=== PATIENT | female | born 1940 | race Caucasian/White ===

== ENCOUNTER 2022-10-22 14:21 | Inpatient (IN) | payer BC ==
[~2022-10-22] VITALS: Ht 157.5 cm; Wt 58.8 kg
[~2022-10-22 14:21] MED LIST: IBAN1TAB3 PO; LISI40TA11 PO; NOR10T PO
[2022-10-22 15:23] LABS: Basophils # (auto) 0.1 10 ^3/uL (0-0.2); Basophils % (auto) 1.2 % (0.0-2.0); Eosinophils # (auto) 0.1 10 ^3/uL (0-0.8); Hematocrit 36.1 % (36.0-46.0); Hemoglobin 11.7 g/dL (12.2-16.2); Lymphocytes % (auto) 14.7 % (10.0-50.0); Mean Corpuscular Hemoglobin 30.1 pg (28.0-32.0); Mean Corpuscular Hgb Conc. 32.5 g/dL (32.0-36.0); Mean Corpuscular Volume 92.6 fL (80.0-100.0); Monocytes # (auto) 0.7 10 ^3/uL (0-1.3); Monocytes % (auto) 10.3 % (0.0-12.0); Neutrophils # (auto) 5.1 10 ^3/uL (1.6-8.6); Neutrophils % (auto) 72.8 % (37.0-80.0); Nucleated Red Blood Cells % 0.1 %; Red Cell Distribution Width 13.4 % (11.8-14.3)
[2022-10-22 15:34] LABS: BUN/Creatinine Ratio 27.7; Calcium 9.2 mg/dL (8.5-10.1); Magnesium 2.1 mg/dL (1.6-2.6)
[2022-10-22 15:37] LABS: Bilirubin, Total 0.4 mg/dL (0.2-1.0); Total Protein 5.9 g/dL (6.4-8.2)
[2022-10-22 15:47] LABS: Potassium 4.8 mmol/L (3.5-5.1)
[2022-10-22] MEDS ORDERED: ACETAMINOPHEN 325 MG TAB PO PRN (18:30)
[2022-10-22] MEDS ORDERED: MORPHINE SULFATE INJ 2 MG/ml SYRG IV PRN (18:30)
[2022-10-22] MEDS ORDERED: NITROGLYCERIN 0.4 MG SL TAB SL PRN (18:30)
[2022-10-22] MEDS ORDERED: DOCUSATE SOD 100 MG CAP PO PRN (18:30)
[2022-10-22] MEDS ORDERED: ONDANSETRON HCL 4 MG/2 ML VIAL IV PRN (18:30)
[2022-10-22] MEDS: HYDROcodone-ACET 5/325MG TAB PO PRN (21:17)
[2022-10-22 22:00] VITALS: BP 116/54
[2022-10-22] MEDS ORDERED: PATIENTS OWN MEDICATION (Lisinopril 1 TAB) PO SCH (22:00)
[2022-10-22 22:42] VITALS: BP 140/70
[2022-10-22] MEDS ORDERED: cefTRIAXone 1GM/50ML D5W 50 ML IV SCH (23:00)
[2022-10-23] MEDS: CLINDAMYCIN 600MG IV 50 ML IV SCH ×4 (00:39→21:41)
[2022-10-23] MEDS: HYDROcodone-ACET 5/325MG TAB PO PRN ×2 (01:47→18:15)
[2022-10-23] MEDS ORDERED: cefTRIAXone 1GM/50ML D5W 50 ML IV SCH (04:45)
[2022-10-23 05:00] VITALS: BP 121/50
[2022-10-23 05:37] LABS: Basophils # (auto) 0.1 10 ^3/uL (0-0.2); Eosinophils # (auto) 0.1 10 ^3/uL (0-0.8); Eosinophils % (auto) 1.7 % (0.0-7.0); Lymphocytes # (auto) 1.2 10 ^3/uL (0.4-5.4); Lymphocytes % (auto) 18.7 % (10.0-50.0); Mean Corpuscular Hemoglobin 30.6 pg (28.0-32.0); Mean Corpuscular Hgb Conc. 33.4 g/dL (32.0-36.0); Mean Corpuscular Volume 91.6 fL (80.0-100.0); Monocytes # (auto) 0.6 10 ^3/uL (0-1.3); Monocytes % (auto) 10.1 % (0.0-12.0); Neutrophils # (auto) 4.3 10 ^3/uL (1.6-8.6); Neutrophils % (auto) 68.5 % (37.0-80.0); Nucleated Red Blood Cells % 0.1 %; Red Blood Cells 3.27 10^6/uL (4.0-5.20); White Blood Cell 6.3 10^3/uL (4.4-10.8)
[2022-10-23 05:49] LABS: Potassium 4.7 mmol/L (3.5-5.1)
[2022-10-23 05:56] LABS: Albumin 2.4 g/dL (3.4-5.0); BUN/Creatinine Ratio 30.5; Bilirubin, Total 0.6 mg/dL (0.2-1.0); Calcium 8.4 mg/dL (8.5-10.1); Total Protein 4.9 g/dL (6.4-8.2)
[2022-10-23] MEDS: ALBUTEROL SULF 2.5 MG/0.5ML(0.5%) NEB SOLN NEB SCH ×3 (07:43→18:40)
[2022-10-23] MEDS: IPRATROPIUM BROM 0.5 MG/2.5ML INH SOL NEB SCH ×3 (07:43→18:40)
[2022-10-23] MEDS: PANTOPRAZOLE 40 MG/10 ML VIAL INJ IV SCH (08:29)
[2022-10-23] MEDS: ENOXAPARIN SOD 40 MG/0.4 ML SYRINGE SC SCH (08:29)
[2022-10-23 08:39] VITALS: BP 112/57
[2022-10-23 13:00] VITALS: BP 125/63
[2022-10-23 17:00] VITALS: BP 118/64
[2022-10-23] MEDS ORDERED: SODIUM CHLORIDE 0.9% 1,000 ML IV SCH (18:00)
[2022-10-23] MEDS: SODIUM CHLORIDE 0.9% 1,000 ML IV SCH (18:14)
[2022-10-23] MEDS: DOXYCYCLINE 100MG/250ML 250 ML IV SCH (18:14)
[2022-10-23 22:00] VITALS: BP 110/47
[2022-10-24] MEDS: HYDROcodone-ACET 5/325MG TAB PO PRN ×4 (00:15→21:54)
[2022-10-24 05:00] VITALS: BP 126/64
[2022-10-24] MEDS: CLINDAMYCIN 600MG IV 50 ML IV SCH ×2 (05:30→12:17)
[2022-10-24] MEDS: DOXYCYCLINE 100MG/250ML 250 ML IV SCH (06:30)
[2022-10-24] MEDS: SODIUM CHLORIDE 0.9% 1,000 ML IV SCH (06:38)
[2022-10-24] MEDS: IPRATROPIUM BROM 0.5 MG/2.5ML INH SOL NEB SCH ×3 (06:46→18:00)
[2022-10-24] MEDS: ALBUTEROL SULF 2.5 MG/0.5ML(0.5%) NEB SOLN NEB SCH ×3 (06:46→18:00)
[2022-10-24 08:00] VITALS: BP 113/53
[2022-10-24] MEDS: ENOXAPARIN SOD 40 MG/0.4 ML SYRINGE SC SCH (08:32)
[2022-10-24] MEDS: PANTOPRAZOLE 40 MG/10 ML VIAL INJ IV SCH (08:32)
[2022-10-24] MEDS ORDERED: amLODIPine BESYLATE 5 MG TAB PO SCH (10:00)
[2022-10-24 11:01] LABS: Urine Blood 1+ /uL (Negative); Urine Specific Gravity 1.018 (1.001-1.035)
[2022-10-24 11:17] LABS: Urine Bacteria MANY /hpf (None Seen); Urine WBC >100 /hpf (0 - 5)
[2022-10-24 12:00] VITALS: BP 103/54
[2022-10-24] MEDS: AMOXICILLIN/CLAVUL 875 MG TAB PO SCH ×2 (15:15→21:53)
[2022-10-24 15:48] LABS: Basophils # (auto) 0 10 ^3/uL (0-0.2); Basophils % (auto) 0.4 % (0.0-2.0); Eosinophils # (auto) 0.1 10 ^3/uL (0-0.8); Eosinophils % (auto) 1.6 % (0.0-7.0); Hematocrit 33.2 % (36.0-46.0); Hemoglobin 10.8 g/dL (12.2-16.2); Lymphocytes # (auto) 0.8 10 ^3/uL (0.4-5.4); Lymphocytes % (auto) 12.9 % (10.0-50.0); Mean Corpuscular Hemoglobin 29.9 pg (28.0-32.0); Mean Corpuscular Hgb Conc. 32.6 g/dL (32.0-36.0); Mean Corpuscular Volume 91.6 fL (80.0-100.0); Monocytes # (auto) 0.5 10 ^3/uL (0-1.3); Monocytes % (auto) 8.4 % (0.0-12.0); Neutrophils % (auto) 76.7 % (37.0-80.0); Nucleated Red Blood Cells % 0.2 %; Red Blood Cells 3.62 10^6/uL (4.0-5.20); Red Cell Distribution Width 13.2 % (11.8-14.3); White Blood Cell 6.5 10^3/uL (4.4-10.8)
[2022-10-24 16:00] VITALS: BP 112/59
[2022-10-24 16:08] LABS: BUN/Creatinine Ratio 27.6; Calcium 8.3 mg/dL (8.5-10.1); Potassium 4.6 mmol/L (3.5-5.1)
[2022-10-24 22:00] VITALS: BP 132/65
[2022-10-24 23:08] VITALS: BP 132/65
[2022-10-25] MEDS ORDERED: PANTOPRAZOLE 40 MG TAB PO SCH (10:00)
== END 2022-10-25 02:08 | DRG 602 ==
LOC: ER 14:21 → EDBD 14:21 → OVERFLOW 18:30 → EAST 21:35
PROVIDERS: ADMIT Nurse Practitioner Family; ATTEND Nurse Practitioner Family
DX: L03.115 Cellulitis of right lower limb (principal); J18.9 Pneumonia, unspecified organism; E46 Unspecified protein-calorie malnutrition; E87.0 Hyperosmolality and hypernatremia; L97.919 Non-pressure chronic ulcer of unspecified part of right lower leg with unspecified severity; N17.9 Acute kidney failure, unspecified; N39.0 Urinary tract infection, site not specified; L03.116 Cellulitis of left lower limb; Z68.23 Body mass index [BMI] 23.0-23.9, adult; E86.0 Dehydration; H91.90 Unspecified hearing loss, unspecified ear; I10 Essential (primary) hypertension; I87.2 Venous insufficiency (chronic) (peripheral); Z96.642 Presence of left artificial hip joint; Z20.822 Contact with and (suspected) exposure to COVID-19; Z74.01 Bed confinement status
CPT/HCPCS: 36415; 71045; 80048; 80053; 81001; 83735; 83880; 84484; 85025; 87426; 93005; 93970; 94640; 96365; 96368; 96372; 96375; C9113; G0378; J0696; J3490

== ENCOUNTER 2023-08-30 17:23 | Inpatient (IN) | payer BC ==
[~2023-08-30] VITALS: Ht 154.9 cm; Wt 68.0 kg
[~2023-08-30 17:23] MED LIST changes: -LISI40TA11 PO; +LISI40TA16 PO
[2023-08-30 18:39] LABS: Basophils # (auto) 0 10 ^3/uL (0-0.2); Basophils % (auto) 0.5 % (0.0-2.0); Eosinophils # (auto) 0 10 ^3/uL (0-0.8); Eosinophils % (auto) 0.3 % (0.0-7.0); Hematocrit 32.5 % (36.0-46.0); Hemoglobin 10.7 g/dL (12.2-16.2); Lymphocytes # (auto) 0.9 10 ^3/uL (0.4-5.4); Lymphocytes % (auto) 12.7 % (10.0-50.0); Mean Corpuscular Hemoglobin 30.2 pg (28.0-32.0); Mean Corpuscular Volume 91.6 fL (80.0-100.0); Monocytes # (auto) 0.8 10 ^3/uL (0-1.3); Monocytes % (auto) 10.8 % (0.0-12.0); Neutrophils # (auto) 5.6 10 ^3/uL (1.6-8.6); Neutrophils % (auto) 75.7 % (37.0-80.0); Red Blood Cells 3.55 10^6/uL (4.0-5.20); Red Cell Distribution Width 14.4 % (11.8-14.3); White Blood Cell 7.4 10^3/uL (4.4-10.8)
[2023-08-30 18:58] LABS: Alanine Aminotransferase 19 U/L (7-40); Alkaline Phosphatase 87 U/L (46-116); Anion Gap 6 (5-15); Aspartate Aminotransferase 20 U/L (13-40); BUN/Creatinine Ratio 17.8 (10.0-20.0); Blood Urea Nitrogen 18 mg/dL (9-23); Calcium 9.3 mg/dL (8.5-10.1); Carbon Dioxide 28 mmol/L (20-30); Chloride 107 mmol/L (98-107); Glucose 136 mg/dL (74-106); Potassium 3.5 mmol/L (3.5-5.1); Sodium 141 mmol/L (136-145)
[2023-08-30 18:59] LABS: Albumin 3.7 g/dL (3.2-4.8); Bilirubin, Total 0.4 mg/dL (0.2-1.0); Total Protein 5.9 g/dL (5.7-8.2)
[2023-08-30 19:35] VITALS: PULSE 73; RESP 20; O2SAT 97
[2023-08-30 19:47] LABS: Erythrocyte Sedimentation Rate 15 mm/hr (0-20)
[2023-08-30] MEDS ORDERED: CEPH250C PO ×2 (21:32)
[2023-08-30 22:15] LABS: Basophils # (auto) 0.1 10 ^3/uL (0-0.2); Eosinophils # (auto) 0 10 ^3/uL (0-0.8); Eosinophils % (auto) 0.7 % (0.0-7.0); Hematocrit 31.2 % (36.0-46.0); Hemoglobin 10.4 g/dL (12.2-16.2); Lymphocytes # (auto) 1.2 10 ^3/uL (0.4-5.4); Lymphocytes % (auto) 17.9 % (10.0-50.0); Mean Corpuscular Hemoglobin 30.4 pg (28.0-32.0); Mean Corpuscular Hgb Conc. 33.3 g/dL (32.0-36.0); Mean Corpuscular Volume 91.3 fL (80.0-100.0); Monocytes # (auto) 0.7 10 ^3/uL (0-1.3); Monocytes % (auto) 10.1 % (0.0-12.0); Neutrophils # (auto) 4.8 10 ^3/uL (1.6-8.6); Neutrophils % (auto) 70.3 % (37.0-80.0); Red Blood Cells 3.42 10^6/uL (4.0-5.20); Red Cell Distribution Width 14.4 % (11.8-14.3); White Blood Cell 6.9 10^3/uL (4.4-10.8)
[2023-08-30] MEDS ORDERED: ACETAMINOPHEN 500 MG TAB PO ONE (22:15)
[2023-08-30] MEDS ORDERED: ACETAMINOPHEN 325 MG TAB PO PRN (22:30)
[2023-08-30] MEDS ORDERED: ONDANSETRON HCL 4 MG/2 ML VIAL IV PRN (22:30)
[2023-08-30] MEDS ORDERED: hydrALAZINE HCL 10 MG TAB PO PRN (22:30)
[2023-08-30 22:33] LABS: Alanine Aminotransferase 20 U/L (7-40); Albumin 3.4 g/dL (3.2-4.8); Alkaline Phosphatase 81 U/L (46-116); Anion Gap 6 (5-15); Aspartate Aminotransferase 17 U/L (13-40); BUN/Creatinine Ratio 18.4 (10.0-20.0); Bilirubin, Total 0.5 mg/dL (0.2-1.0); Blood Urea Nitrogen 16 mg/dL (9-23); Calcium 8.9 mg/dL (8.5-10.1); Carbon Dioxide 27 mmol/L (20-30); Chloride 108 mmol/L (98-107); Glucose 81 mg/dL (74-106); INR 1.04 (0.9-1.15); Potassium 3.6 mmol/L (3.5-5.1); Prothrombin Time 10.9 sec (9.3-11.8); Sodium 141 mmol/L (136-145); Total Protein 5.6 g/dL (5.7-8.2)
[2023-08-30 22:44] LABS: Lipase 56 U/L (12-53); Magnesium 1.9 mg/dL (1.6-2.6)
[2023-08-30] MEDS: ENOXAPARIN SOD 40 MG/0.4 ML SYRINGE SC SCH (22:44)
[2023-08-30] MEDS: CLINDAMYCIN 600MG IV 50 ML IV SCH (22:44)
[2023-08-30] MEDS ORDERED: cefTRIAXone 1GM/50ML D5W 50 ML IV SCH (23:00)
[2023-08-31 00:05] LABS: Urine Bacteria NONE SEEN /hpf (None Seen); Urine Blood Negative /uL (Negative); Urine Clarity Clear (Clear); Urine Color Colorless (Yellow); Urine Hyaline Cast FEW /lpf (0 - 2); Urine Protein, UAD Negative (Negative); Urine Specific Gravity 1.009 (1.001-1.035); Urine Urobilinogen Normal (Negative); Urine WBC <1 /hpf (0 - 5)
[2023-08-31] MEDS: CLINDAMYCIN 600MG IV 50 ML IV SCH (06:38)
[2023-08-31] MEDS: HYDROcodone-ACET 5/325MG TAB PO PRN ×2 (06:42→20:03)
[2023-08-31 08:00] VITALS: PULSE 65; RESP 16; O2SAT 96
[2023-08-31] MEDS: FOLIC ACID 1 MG, MULTIPLE VITAMIN 10 ML, MAGNESIUM SULF SDV 50% 8 MEQ, THIAMINE INJ 100... INJ SCH ×5 (11:35)
[2023-08-31] MEDS: ceFAZolin 2 GM/D5W100ml 100 ML IV SCH ×3 (15:05→21:47)
[2023-08-31 17:12] VITALS: BP 116/61; PULSE 63; RESP 19; TEMP 98.4; O2SAT 98
[2023-08-31 17:18] VITALS: PULSE 63; RESP 19; O2SAT 96
[2023-08-31] MEDS: ENOXAPARIN SOD 40 MG/0.4 ML SYRINGE SC SCH (21:25)
[2023-08-31 22:00] VITALS: BP 129/74; PULSE 74; RESP 18; TEMP 97.4; O2SAT 93
[2023-09-01 05:00] VITALS: BP 136/61; PULSE 70; RESP 18; TEMP 97.5; O2SAT 91
[2023-09-01] MEDS: ceFAZolin 2 GM/D5W100ml 100 ML IV SCH ×3 (05:36→21:30)
[2023-09-01 08:30] VITALS: BP 142/79; PULSE 78; RESP 17; TEMP 97.8; O2SAT 96
[2023-09-01] MEDS ORDERED: FUROSEMIDE 20 MG/2 ML VIAL IV ONE (10:30)
[2023-09-01 13:00] VITALS: BP 137/77; PULSE 70; RESP 17; TEMP 97.9; O2SAT 95
[2023-09-01] MEDS: FOLIC ACID 1 MG, MULTIPLE VITAMIN 10 ML, MAGNESIUM SULF SDV 50% 8 MEQ, THIAMINE INJ 100... INJ SCH ×5 (13:00)
[2023-09-01] MEDS: HYDROcodone-ACET 5/325MG TAB PO PRN (16:38)
[2023-09-01 16:59] VITALS: BP 127/67; PULSE 65; RESP 20; TEMP 99; O2SAT 97
[2023-09-01] MEDS ORDERED: AMLO1TAB22 PO (17:09)
[2023-09-01] MEDS ORDERED: LISI40TA16 PO (17:09)
[2023-09-01] MEDS ORDERED: GABA-339 PO (17:09)
[2023-09-01] MEDS ORDERED: HYDR-4798 PO (17:09)
[2023-09-01] MEDS ORDERED: IBAN1TAB2 PO (17:09)
[2023-09-01] MEDS: SPIRONOLACTONE 25 MG TAB PO SCH (18:00)
[2023-09-01] MEDS: ENOXAPARIN SOD 40 MG/0.4 ML SYRINGE SC SCH (21:30)
[2023-09-01 22:00] VITALS: BP 133/76; PULSE 66; RESP 16; TEMP 98.7; O2SAT 94
[2023-09-01 22:01] LABS: COVID19 ANTIGEN SOFIA FIA NEGATIVE (NEGATIVE)
[2023-09-02 05:00] VITALS: BP 128/77; PULSE 128; RESP 77; TEMP 98.1; O2SAT 98
[2023-09-02] MEDS: ceFAZolin 2 GM/D5W100ml 100 ML IV SCH (05:44)
[2023-09-02] MEDS: SPIRONOLACTONE 25 MG TAB PO SCH (05:45)
[2023-09-02 06:03] LABS: Calcium 8.3 mg/dL (8.5-10.1); Chloride 106 mmol/L (98-107); Potassium 3.8 mmol/L (3.5-5.1); Sodium 142 mmol/L (136-145)
[2023-09-02 06:04] LABS: Anion Gap 7 (5-15); Carbon Dioxide 29 mmol/L (20-30)
[2023-09-02 06:09] LABS: BUN/Creatinine Ratio 12.8 (10.0-20.0); Blood Urea Nitrogen 11 mg/dL (9-23); Glucose 86 mg/dL (74-106)
[2023-09-02 08:36] VITALS: BP 139/76; PULSE 78; RESP 17; TEMP 97.7; O2SAT 97
[2023-09-02] MEDS: FOLIC ACID 1 MG, MULTIPLE VITAMIN 10 ML, MAGNESIUM SULF SDV 50% 8 MEQ, THIAMINE INJ 100... INJ SCH ×5 (12:00)
[2023-09-02 13:00] VITALS: BP 143/76; PULSE 73; RESP 16; TEMP 98.4; O2SAT 99
[2023-09-02 15:11] VITALS: BP 142/79; RESP 16; TEMP 36.9
== END 2023-09-02 15:50 | DRG 603 ==
LOC: EDBD 17:23 → EDUNIT# 17:23 → ER 17:23 → OVERFLOW 22:28 → OBSVTOIN 08-31 10:08 → EAST 08-31 15:59
PROVIDERS: ADMIT Nurse Practitioner Family; ATTEND Nurse Practitioner Family
DX: L03.115 Cellulitis of right lower limb (principal); I50.22 Chronic systolic (congestive) heart failure; J96.10 Chronic respiratory failure, unspecified whether with hypoxia or hypercapnia; L97.919 Non-pressure chronic ulcer of unspecified part of right lower leg with unspecified severity; L03.116 Cellulitis of left lower limb; I10 Essential (primary) hypertension; I87.2 Venous insufficiency (chronic) (peripheral); I11.0 Hypertensive heart disease with heart failure; I48.0 Paroxysmal atrial fibrillation; Z96.642 Presence of left artificial hip joint; Z20.822 Contact with and (suspected) exposure to COVID-19
CPT/HCPCS: 36415; 71045; 73590; 73630; 80048; 80053; 80320; 81001; 83605; 83690; 83735; 83880; 85025; 85610; 85652; 86141; 87040; 87426; 93306; 93970; 96372; 97110; 97163; G0378; J0696; J3490

== ENCOUNTER 2023-11-25 21:35 | Inpatient (IN) | payer BC ==
[~2023-11-25] VITALS: Ht 152.4 cm; Wt 98.8 kg
[~2023-11-25 21:35] MED LIST changes: +AMLO1TAB22 PO; +GABA-339 PO; +HYDR-4798 PO; +IBAN1TAB2 PO; -IBAN1TAB3 PO; -NOR10T PO
[2023-11-26] VITALS (8 sets, daily range): BP systolic 89–140; BP diastolic 48–68; PULSE 62–97; RESP 16–22; TEMP 97.9–100; O2SAT 74–98
[2023-11-26] MEDS ORDERED: NITROGLYCERIN 0.4 MG SL TAB SL PRN (02:00)
[2023-11-26] MEDS ORDERED: hydrALAZINE HCL 20 MG/ML VL IV PRN (02:00)
[2023-11-26] MEDS ORDERED: ACETAMINOPHEN 325 MG TAB PO PRN (02:00)
[2023-11-26] MEDS ORDERED: MORPHINE SULFATE INJ 2 MG/ml SYRG IV PRN (02:00)
[2023-11-26] MEDS ORDERED: ONDANSETRON HCL 4 MG/2 ML VIAL IV PRN (02:00)
[2023-11-26] MEDS ORDERED: ASCO500T16 PO (03:05)
[2023-11-26] MEDS ORDERED: FUROSEMIDE 20 MG/2 ML VIAL IV SCH (06:00)
[2023-11-26 06:42] LABS: Basophils # (auto) 0 10 ^3/uL (0-0.2); Basophils % (auto) 0.4 % (0.0-2.0); Eosinophils # (auto) 0.1 10 ^3/uL (0-0.8); Eosinophils % (auto) 0.8 % (0.0-7.0); Hematocrit 37.1 % (36.0-46.0); Hemoglobin 12.3 g/dL (12.2-16.2); Lymphocytes # (auto) 0.7 10 ^3/uL (0.4-5.4); Lymphocytes % (auto) 8.3 % (10.0-50.0); Mean Corpuscular Hemoglobin 29.5 pg (28.0-32.0); Mean Corpuscular Hgb Conc. 33.2 g/dL (32.0-36.0); Mean Corpuscular Volume 88.9 fL (80.0-100.0); Monocytes # (auto) 0.7 10 ^3/uL (0-1.3); Monocytes % (auto) 8.6 % (0.0-12.0); Neutrophils # (auto) 6.5 10 ^3/uL (1.6-8.6); Neutrophils % (auto) 81.9 % (37.0-80.0); Nucleated Red Blood Cells % 0.1 %; Red Blood Cells 4.17 10^6/uL (4.0-5.20); Red Cell Distribution Width 14.5 % (11.8-14.3)
[2023-11-26] MEDS: PIPERACILLIN-TAZOB 3.375GM 100 ML IV SCH ×3 (06:56→21:53)
[2023-11-26 07:06] LABS: Chloride 102 mmol/L (98-107); Sodium 141 mmol/L (136-145)
[2023-11-26 07:07] LABS: Calcium 9.6 mg/dL (8.5-10.1)
[2023-11-26 07:12] LABS: BUN/Creatinine Ratio 15.7 (10.0-20.0); Blood Urea Nitrogen 17 mg/dL (9-23); Glucose 79 mg/dL (74-106)
[2023-11-26 07:34] LABS: Anion Gap 9 (5-15); Carbon Dioxide 30 mmol/L (20-30)
[2023-11-26] MEDS ORDERED: PANTOPRAZOLE 40 MG/10 ML VIAL INJ IV SCH (10:00)
[2023-11-26] MEDS: ENOXAPARIN SOD 30 MG/0.3 ML SYRINGE SC SCH (11:23)
[2023-11-26] MEDS: HYDROcodone-ACET 5/325MG TAB PO PRN (16:38)
[2023-11-26] MEDS: MIDODRINE HCL 10 MG TAB PO SCH (18:00)
[2023-11-27] VITALS (7 sets, daily range): BP systolic 115–144; BP diastolic 55–82; PULSE 53–78; RESP 16–20; TEMP 97.7–98.7; O2SAT 94–98
[2023-11-27] MEDS: PIPERACILLIN-TAZOB 3.375GM 100 ML IV SCH ×3 (05:33→21:54)
[2023-11-27] MEDS: MIDODRINE HCL 10 MG TAB PO SCH ×3 (05:34→17:41)
[2023-11-27 06:18] LABS: Basophils # (auto) 0.1 10 ^3/uL (0-0.2); Basophils % (auto) 1.6 % (0.0-2.0); Eosinophils # (auto) 0.2 10 ^3/uL (0-0.8); Eosinophils % (auto) 3.5 % (0.0-7.0); Hemoglobin 11.5 g/dL (12.2-16.2); Lymphocytes # (auto) 1.3 10 ^3/uL (0.4-5.4); Mean Corpuscular Hemoglobin 29.2 pg (28.0-32.0); Mean Corpuscular Hgb Conc. 32.7 g/dL (32.0-36.0); Mean Corpuscular Volume 89.2 fL (80.0-100.0); Monocytes # (auto) 0.6 10 ^3/uL (0-1.3); Monocytes % (auto) 10.6 % (0.0-12.0); Neutrophils # (auto) 3.7 10 ^3/uL (1.6-8.6); Neutrophils % (auto) 62.3 % (37.0-80.0); Red Blood Cells 3.92 10^6/uL (4.0-5.20); Red Cell Distribution Width 14.8 % (11.8-14.3); White Blood Cell 5.9 10^3/uL (4.4-10.8)
[2023-11-27 06:24] LABS: Chloride 102 mmol/L (98-107); Potassium 4.1 mmol/L (3.5-5.1); Sodium 139 mmol/L (136-145)
[2023-11-27 06:25] LABS: Anion Gap 6 (5-15); Carbon Dioxide 31 mmol/L (20-30)
[2023-11-27 06:26] LABS: Calcium 8.6 mg/dL (8.7-10.4)
[2023-11-27 06:30] LABS: Glucose 79 mg/dL (74-106)
[2023-11-27 06:31] LABS: BUN/Creatinine Ratio 16.9 (10.0-20.0); Blood Urea Nitrogen 26 mg/dL (9-23)
[2023-11-27] MEDS: ENOXAPARIN SOD 30 MG/0.3 ML SYRINGE SC SCH (10:00)
[2023-11-27] MEDS: HYDROcodone-ACET 5/325MG TAB PO PRN ×3 (10:02→22:34)
[2023-11-28] VITALS (7 sets, daily range): BP systolic 121–147; BP diastolic 51–63; PULSE 57–76; RESP 14–20; TEMP 98.3–98.8; O2SAT 93–97
[2023-11-28] MEDS: HYDROcodone-ACET 5/325MG TAB PO PRN ×2 (05:12→17:25)
[2023-11-28] MEDS: PIPERACILLIN-TAZOB 3.375GM 100 ML IV SCH ×3 (05:53→21:44)
[2023-11-28] MEDS: MIDODRINE HCL 10 MG TAB PO SCH ×3 (05:53→17:09)
[2023-11-28 06:56] LABS: Basophils # (auto) 0 10 ^3/uL (0-0.2); Basophils % (auto) 0.7 % (0.0-2.0); Eosinophils # (auto) 0.3 10 ^3/uL (0-0.8); Eosinophils % (auto) 3.9 % (0.0-7.0); Hematocrit 36.1 % (36.0-46.0); Hemoglobin 11.7 g/dL (12.2-16.2); Lymphocytes # (auto) 1.1 10 ^3/uL (0.4-5.4); Lymphocytes % (auto) 15.7 % (10.0-50.0); Mean Corpuscular Hemoglobin 29.1 pg (28.0-32.0); Mean Corpuscular Hgb Conc. 32.5 g/dL (32.0-36.0); Mean Corpuscular Volume 89.5 fL (80.0-100.0); Monocytes # (auto) 0.8 10 ^3/uL (0-1.3); Monocytes % (auto) 11.8 % (0.0-12.0); Neutrophils # (auto) 4.5 10 ^3/uL (1.6-8.6); Neutrophils % (auto) 67.9 % (37.0-80.0); Red Blood Cells 4.04 10^6/uL (4.0-5.20); Red Cell Distribution Width 14.6 % (11.8-14.3); White Blood Cell 6.7 10^3/uL (4.4-10.8)
[2023-11-28 07:06] LABS: Chloride 103 mmol/L (98-107); Potassium 4.2 mmol/L (3.5-5.1); Sodium 138 mmol/L (136-145)
[2023-11-28 07:07] LABS: Anion Gap 7 (5-15); Carbon Dioxide 28 mmol/L (20-30)
[2023-11-28 07:08] LABS: Calcium 8.8 mg/dL (8.5-10.1)
[2023-11-28 07:13] LABS: BUN/Creatinine Ratio 15.8 (10.0-20.0); Blood Urea Nitrogen 22 mg/dL (9-23); Glucose 79 mg/dL (74-106)
[2023-11-28] MEDS: ENOXAPARIN SOD 30 MG/0.3 ML SYRINGE SC SCH (08:58)
[2023-11-29 05:00] VITALS: BP 117/73; PULSE 64; RESP 16; TEMP 98.7; O2SAT 95
[2023-11-29] MEDS: PIPERACILLIN-TAZOB 3.375GM 100 ML IV SCH ×2 (05:47→14:07)
[2023-11-29] MEDS: MIDODRINE HCL 10 MG TAB PO SCH ×3 (05:47→17:31)
[2023-11-29 06:27] LABS: Basophils # (auto) 0 10 ^3/uL (0-0.2); Basophils % (auto) 0.1 % (0.0-2.0); Eosinophils # (auto) 0.1 10 ^3/uL (0-0.8); Hematocrit 36.6 % (36.0-46.0); Lymphocytes # (auto) 0.9 10 ^3/uL (0.4-5.4); Lymphocytes % (auto) 6.2 % (10.0-50.0); Mean Corpuscular Hemoglobin 29.3 pg (28.0-32.0); Mean Corpuscular Hgb Conc. 32.6 g/dL (32.0-36.0); Mean Corpuscular Volume 89.7 fL (80.0-100.0); Monocytes % (auto) 7.2 % (0.0-12.0); Neutrophils % (auto) 85.5 % (37.0-80.0); Nucleated Red Blood Cells % 0.1 %; Red Blood Cells 4.08 10^6/uL (4.0-5.20); Red Cell Distribution Width 14.4 % (11.8-14.3); White Blood Cell 14.1 10^3/uL (4.4-10.8)
[2023-11-29 06:37] LABS: Anion Gap 5 (5-15); Carbon Dioxide 27 mmol/L (20-30); Chloride 104 mmol/L (98-107); Potassium 3.9 mmol/L (3.5-5.1); Sodium 136 mmol/L (136-145)
[2023-11-29 06:38] LABS: Calcium 8.9 mg/dL (8.7-10.4)
[2023-11-29 06:43] LABS: BUN/Creatinine Ratio 15.3 (10.0-20.0); Blood Urea Nitrogen 18 mg/dL (9-23); Glucose 85 mg/dL (74-106)
[2023-11-29 08:00] VITALS: PULSE 80; O2SAT 93
[2023-11-29 09:00] VITALS: BP 115/55; PULSE 67; RESP 17; TEMP 98.6; O2SAT 96
[2023-11-29] MEDS: ENOXAPARIN SOD 30 MG/0.3 ML SYRINGE SC SCH (09:11)
[2023-11-29] MEDS: HYDROcodone-ACET 5/325MG TAB PO PRN (09:12)
[2023-11-29 13:00] VITALS: BP 108/50; PULSE 64; RESP 17; TEMP 99.1; O2SAT 96
[2023-11-29 17:00] VITALS: BP 123/57; PULSE 61; RESP 17; TEMP 97.8; O2SAT 97
[2023-11-29 17:49] VITALS: BP 123/57; PULSE 67; RESP 17; TEMP 97.8; O2SAT 97
== END 2023-11-29 18:55 | DRG 563 ==
LOC: TELE-WESTW 11-26 01:04 → UNDOADMIN 11-26 01:04 → TELE-WESTW 11-26 02:09
PROVIDERS: ADMIT Nurse Practitioner Family; ATTEND Nurse Practitioner Family
DX: S83.242A Other tear of medial meniscus, current injury, left knee, initial encounter (principal); N39.0 Urinary tract infection, site not specified; S83.421A Sprain of lateral collateral ligament of right knee, initial encounter; I10 Essential (primary) hypertension; M17.10 Unilateral primary osteoarthritis, unspecified knee; M67.462 Ganglion, left knee; R79.89 Other specified abnormal findings of blood chemistry; R92.323 Mammographic fibroglandular density, bilateral breasts
CPT/HCPCS: 36415; 73562; 73721; 80048; 85025; 87040; 87081; 93970; 97116; 97163; 97530; C9113; G0378; J2543

== ENCOUNTER 2024-01-08 15:00 | Inpatient (IN) | payer BC ==
[~2024-01-08] VITALS: Ht 152.4 cm; Wt 49.8 kg
[~2024-01-08 15:00] MED LIST changes: +ASCO500T16 PO
[2024-01-08] MEDS: IPRATROPIUM BROM 0.5 MG/2.5ML INH SOL NEB ONE (15:48)
[2024-01-08] MEDS: ALBUTEROL SULF 2.5 MG/0.5ML(0.5%) NEB SOLN NEB ONE (15:49)
[2024-01-08 16:09] LABS: Basophils # (auto) 0 10 ^3/uL (0-0.2); Basophils % (auto) 0.4 % (0.0-2.0); Eosinophils # (auto) 0 10 ^3/uL (0-0.8); Eosinophils % (auto) 0.2 % (0.0-7.0); Hematocrit 34.7 % (36.0-46.0); Hemoglobin 11.1 g/dL (12.2-16.2); Lymphocytes # (auto) 0.6 10 ^3/uL (0.4-5.4); Lymphocytes % (auto) 10.4 % (10.0-50.0); Mean Corpuscular Hemoglobin 28.6 pg (28.0-32.0); Mean Corpuscular Volume 89.4 fL (80.0-100.0); Monocytes # (auto) 0.4 10 ^3/uL (0-1.3); Monocytes % (auto) 7.4 % (0.0-12.0); Neutrophils # (auto) 4.5 10 ^3/uL (1.6-8.6); Neutrophils % (auto) 81.6 % (37.0-80.0); Nucleated Red Blood Cells % 0.1 %; Red Blood Cells 3.88 10^6/uL (4.0-5.20); Red Cell Distribution Width 16.9 % (11.8-14.3); White Blood Cell 5.6 10^3/uL (4.4-10.8)
[2024-01-08 16:18] LABS: Alanine Aminotransferase 16 U/L (7-40); Alkaline Phosphatase 182 U/L (46-116); Anion Gap 8 (5-15); Aspartate Aminotransferase 20 U/L (13-40); BUN/Creatinine Ratio 19.3 (10.0-20.0); Blood Urea Nitrogen 16 mg/dL (9-23); Calcium 9.4 mg/dL (8.7-10.4); Carbon Dioxide 27 mmol/L (20-30); Chloride 104 mmol/L (98-107); Glucose 84 mg/dL (74-106); Lipase 33 U/L (12-53); Potassium 4.8 mmol/L (3.5-5.1); Sodium 139 mmol/L (136-145)
[2024-01-08 16:19] LABS: Bilirubin, Total 0.6 mg/dL (0.2-1.0); Total Protein 6.3 g/dL (5.7-8.2)
[2024-01-08] MEDS: DexAMETHasone SOD PHOS 10MG/1ML VIAL INJ IV ONE (16:40)
[2024-01-08 16:55] VITALS: PULSE 101; RESP 16; O2SAT 97
[2024-01-08 19:00] VITALS: PULSE 88; RESP 24; O2SAT 96
[2024-01-08] MEDS: IOHEXOL 350 MG/ML 100ML IJ ONE (19:47)
[2024-01-08 20:24] LABS: Urine Bacteria FEW /hpf (None Seen); Urine Blood Negative /uL (Negative); Urine Clarity Clear (Clear); Urine Protein, UAD Negative (Negative); Urine Specific Gravity 1.009 (1.001-1.035); Urine Urobilinogen Normal (Negative); Urine WBC 3 /hpf (0 - 5)
[2024-01-08 20:25] LABS: Urine Color STRAW (Yellow)
[2024-01-08] MEDS: FUROSEMIDE 40 MG/4 ML VIAL IV ONE (20:36)
[2024-01-08] MEDS: ENOXAPARIN SOD 40 MG/0.4 ML SYRINGE SC ONE (21:53)
[2024-01-08] MEDS ORDERED: SENNA 8.6 MG TAB PO PRN (22:00)
[2024-01-08] MEDS ORDERED: ONDANSETRON HCL 4 MG/2 ML VIAL IV PRN (22:00)
[2024-01-08] MEDS ORDERED: ACETAMINOPHEN 325 MG TAB PO PRN (22:00)
[2024-01-08] MEDS ORDERED: hydrALAZINE HCL 10 MG TAB PO PRN (22:00)
[2024-01-08 22:32] VITALS: BP 138/72; PULSE 98; RESP 20; TEMP 97.9; O2SAT 96
[2024-01-08 22:47] LABS: INR 1.04 (0.9-1.15); Prothrombin Time 10.9 sec (9.3-11.8)
[2024-01-08] MEDS: DOXYCYCLINE 100MG/250ML 250 ML IV SCH (22:52)
[2024-01-08] MEDS: HYDROcodone-ACET 5/325MG TAB PO PRN (22:54)
[2024-01-08] MEDS: MELATONIN 5 MG TAB PO PRN (23:04)
[2024-01-08 23:45] LABS: COVID19 ANTIGEN SOFIA FIA NEGATIVE (NEGATIVE); Rapid Influenza A Negative (Negative); Rapid Influenza B Negative (Negative)
[2024-01-09] VITALS (11 sets, daily range): BP systolic 133; BP diastolic 82; PULSE 84–102; RESP 16–24; TEMP 98.3; O2SAT 93–100
[2024-01-09] MEDS: IPRATROPIUM BROM 0.5 MG/2.5ML INH SOL NEB SCH (02:06)
[2024-01-09 03:39] LABS: Basophils # (auto) 0 10 ^3/uL (0-0.2); Basophils % (auto) 0.2 % (0.0-2.0); Eosinophils # (auto) 0 10 ^3/uL (0-0.8); Eosinophils % (auto) 0.1 % (0.0-7.0); Hemoglobin 9.8 g/dL (12.2-16.2); Lymphocytes # (auto) 0.3 10 ^3/uL (0.4-5.4); Lymphocytes % (auto) 8.7 % (10.0-50.0); Mean Corpuscular Hemoglobin 29.5 pg (28.0-32.0); Mean Corpuscular Hgb Conc. 32.6 g/dL (32.0-36.0); Mean Corpuscular Volume 90.3 fL (80.0-100.0); Monocytes # (auto) 0.1 10 ^3/uL (0-1.3); Neutrophils # (auto) 2.6 10 ^3/uL (1.6-8.6); Nucleated Red Blood Cells % 0.2 %; Red Blood Cells 3.32 10^6/uL (4.0-5.20); Red Cell Distribution Width 16.8 % (11.8-14.3); White Blood Cell 2.9 10^3/uL (4.4-10.8)
[2024-01-09 03:45] LABS: Chloride 105 mmol/L (98-107); Potassium 4.2 mmol/L (3.5-5.1); Sodium 138 mmol/L (136-145)
[2024-01-09 03:46] LABS: Anion Gap 7 (5-15); Calcium 8.5 mg/dL (8.7-10.4); Carbon Dioxide 26 mmol/L (20-30)
[2024-01-09 03:51] LABS: BUN/Creatinine Ratio 13.7 (10.0-20.0); Blood Urea Nitrogen 14 mg/dL (9-23); Glucose 152 mg/dL (74-106)
[2024-01-09] MEDS: methylPREDNISolone SOD SUCC 40 MG/ML VL IV SCH (09:01)
[2024-01-09] MEDS: ENOXAPARIN SOD 40 MG/0.4 ML SYRINGE SC SCH (09:01)
[2024-01-09] MEDS: PANTOPRAZOLE 40 MG/10 ML VIAL INJ IV SCH (09:01)
[2024-01-09] MEDS: FUROSEMIDE 20 MG/2 ML VIAL IV SCH (09:02)
[2024-01-10] VITALS (24 sets, daily range): BP systolic 115–136; BP diastolic 60–82; PULSE 77–153; RESP 16–24; TEMP 97.6–98.7; O2SAT 92–100
[2024-01-10 07:16] LABS: Basophils # (auto) 0 10 ^3/uL (0-0.2); Basophils % (auto) 0.2 % (0.0-2.0); Eosinophils # (auto) 0 10 ^3/uL (0-0.8); Hematocrit 32.2 % (36.0-46.0); Hemoglobin 10.7 g/dL (12.2-16.2); Lymphocytes # (auto) 0.4 10 ^3/uL (0.4-5.4); Lymphocytes % (auto) 8.5 % (10.0-50.0); Mean Corpuscular Hemoglobin 29.1 pg (28.0-32.0); Mean Corpuscular Hgb Conc. 33.3 g/dL (32.0-36.0); Mean Corpuscular Volume 87.6 fL (80.0-100.0); Monocytes # (auto) 0.2 10 ^3/uL (0-1.3); Monocytes % (auto) 4.1 % (0.0-12.0); Neutrophils # (auto) 4.5 10 ^3/uL (1.6-8.6); Neutrophils % (auto) 87.2 % (37.0-80.0); Red Blood Cells 3.67 10^6/uL (4.0-5.20); Red Cell Distribution Width 16.6 % (11.8-14.3); White Blood Cell 5.2 10^3/uL (4.4-10.8)
[2024-01-10 07:26] LABS: Chloride 103 mmol/L (98-107); Sodium 139 mmol/L (136-145)
[2024-01-10 07:27] LABS: Anion Gap 7 (5-15); Calcium 8.8 mg/dL (8.5-10.1); Carbon Dioxide 29 mmol/L (20-30)
[2024-01-10 07:32] LABS: BUN/Creatinine Ratio 19.6 (10.0-20.0); Blood Urea Nitrogen 20 mg/dL (9-23); Glucose 103 mg/dL (74-106)
[2024-01-10] MEDS ORDERED: MIDO5TAB4 PO (08:25)
[2024-01-10] MEDS ORDERED: SPIR25TA8 PO (08:25)
[2024-01-10] MEDS ORDERED: CINN500T PO (18:14)
[2024-01-11] VITALS (18 sets, daily range): BP systolic 110–132; BP diastolic 40–81; PULSE 42–132; RESP 14–20; TEMP 97.9–99.4; O2SAT 84–100
[2024-01-11] MEDS: SPIRONOLACTONE 25 MG TAB PO SCH (18:12)
[2024-01-11] MEDS: DOXYCYCLINE 100 MG TAB/CAP PO SCH (23:00)
[2024-01-11] MEDS: MUPIROCIN 2% OINT 15gm or 22gm FOR MRSA NARES EACHNOSTRI SCH (23:00)
[2024-01-12] VITALS (13 sets, daily range): BP systolic 119–137; BP diastolic 72–92; PULSE 67–127; RESP 16–18; TEMP 97.6–98.1; O2SAT 95–99
[2024-01-12 12:34] LABS: COVID19 ANTIGEN SOFIA FIA NEGATIVE (NEGATIVE)
[2024-01-12] MEDS: METOPROLOL TARTRATE 25 MG TAB PO SCH (13:27)
== END 2024-01-12 16:30 | DRG 291 ==
LOC: ER 15:00 → EDBD 15:00 → TELE 22:04 → TELE-CENTR 01-09 23:07
PROVIDERS: ADMIT Nurse Practitioner Family; ATTEND Internal Medicine
DX: I11.0 Hypertensive heart disease with heart failure (principal); I50.33 Acute on chronic diastolic (congestive) heart failure; J90 Pleural effusion, not elsewhere classified; M48.54XA Collapsed vertebra, not elsewhere classified, thoracic region, initial encounter for fracture; M48.56XA Collapsed vertebra, not elsewhere classified, lumbar region, initial encounter for fracture; J96.11 Chronic respiratory failure with hypoxia; Z20.822 Contact with and (suspected) exposure to COVID-19; I50.9 Heart failure, unspecified; I87.2 Venous insufficiency (chronic) (peripheral); D64.9 Anemia, unspecified; M81.0 Age-related osteoporosis without current pathological fracture; Z79.899 Other long term (current) drug therapy; Z99.81 Dependence on supplemental oxygen; Z80.9 Family history of malignant neoplasm, unspecified; Z87.891 Personal history of nicotine dependence
CPT/HCPCS: 36415; 71045; 71275; 76604; 80048; 80053; 81001; 83605; 83690; 83880; 84484; 85025; 85379; 85610; 87081; 87426; 87804; 93970; 94640; 97110; 97116; 97163; 97530; C9113; G0378; J1100; J3490

== ENCOUNTER 2024-07-26 14:57 | Inpatient (IN) | payer BC ==
[~2024-07-26] VITALS: Ht 162.6 cm; Wt 46.0 kg
[~2024-07-26 14:57] MED LIST changes: +CINN500T PO; +MIDO5TAB4 PO; +SPIR25TA8 PO
[2024-07-26 15:45] VITALS: PULSE 73; RESP 22; O2SAT 95
[2024-07-26 16:30] LABS: Basophils # (auto) 0 10 ^3/uL (0-0.2); Basophils % (auto) 0.6 % (0.0-2.0); Eosinophils # (auto) 0 10 ^3/uL (0-0.8); Eosinophils % (auto) 0.1 % (0.0-7.0); Hematocrit 37.7 % (36.0-46.0); Hemoglobin 12.9 g/dL (12.2-16.2); Lymphocytes # (auto) 0.7 10 ^3/uL (0.4-5.4); Lymphocytes % (auto) 8.3 % (10.0-50.0); Mean Corpuscular Hemoglobin 32.5 pg (28.0-32.0); Mean Corpuscular Hgb Conc. 34.2 g/dL (32.0-36.0); Mean Corpuscular Volume 95.2 fL (80.0-100.0); Monocytes # (auto) 0.7 10 ^3/uL (0-1.3); Monocytes % (auto) 8.9 % (0.0-12.0); Neutrophils # (auto) 6.7 10 ^3/uL (1.6-8.6); Neutrophils % (auto) 82.1 % (37.0-80.0); Platelet Count (auto) 235 10^3/uL (140-450); Red Blood Cells 3.95 10^6/uL (4.0-5.20); Red Cell Distribution Width 15.6 % (11.8-14.3); White Blood Cell 8.2 10^3/uL (4.4-10.8)
[2024-07-26 16:53] LABS: Alanine Aminotransferase 19 U/L (7-40); Albumin 3.8 g/dL (3.2-4.8); Alkaline Phosphatase 93 U/L (46-116); Anion Gap 8 (5-15); Aspartate Aminotransferase 19 U/L (13-40); BUN/Creatinine Ratio 23.3 (10.0-20.0); Bilirubin, Total 0.7 mg/dL (0.2-1.0); Blood Urea Nitrogen 24 mg/dL (9-23); Calcium 9.7 mg/dL (8.7-10.4); Carbon Dioxide 29 mmol/L (20-30); Chloride 104 mmol/L (98-107); Glucose 94 mg/dL (74-106); Lipase 46 U/L (12-53); Potassium 4.4 mmol/L (3.5-5.1); Sodium 141 mmol/L (136-145); Total Protein 6.1 g/dL (5.7-8.2)
[2024-07-26] MEDS: HYDROcodone-ACET 10/325MG TAB PO ONE (18:20)
[2024-07-26 18:33] LABS: Urine Bacteria None Seen /hpf (None Seen)
[2024-07-26 19:01] LABS: Urine Blood Negative /uL (Negative); Urine Clarity Clear (Clear); Urine Color Light-Yellow (Yellow); Urine Protein, UAD Negative (Negative); Urine Urobilinogen Normal (Negative); Urine WBC 37 /hpf (0 - 5); Urine pH 6.5 (5.0-9.0)
[2024-07-26 20:00] VITALS: PULSE 76; RESP 19; O2SAT 97
[2024-07-26] MEDS: FUROSEMIDE 40 MG/4 ML VIAL IV ONE (20:01)
[2024-07-26] MEDS: cefTRIAXone 1GM/50ML D5W 50 ML IV ONE (20:02)
[2024-07-26] MEDS ORDERED: ONDANSETRON HCL 4 MG/2 ML VIAL IV PRN (20:30)
[2024-07-26] MEDS ORDERED: ACETAMINOPHEN 325 MG TAB PO PRN (20:30)
[2024-07-27] VITALS (9 sets, daily range): BP systolic 122–146; BP diastolic 45–66; PULSE 51–81; RESP 15–20; TEMP 98–99.8; O2SAT 90–97
[2024-07-27] MEDS: HYDROcodone-ACET 5/325MG TAB PO PRN (10:44)
[2024-07-27] MEDS ORDERED: MORPHINE SULFATE INJ 2 MG/ml SYRG IV PRN (11:45)
[2024-07-27] MEDS ORDERED: METO25TA5 PO (12:18)
[2024-07-27] MEDS ORDERED: POTA-215 PO (12:18)
[2024-07-27] MEDS ORDERED: FURO20TA3 PO (12:18)
[2024-07-27] MEDS: cefTRIAXone 1GM/50ML D5W 50 ML IV SCH (12:42)
[2024-07-27] MEDS: FAMOTIDINE 20 MG TAB PO SCH (12:43)
[2024-07-27] MEDS: ENOXAPARIN SOD 40 MG/0.4 ML SYRINGE SC SCH (12:47)
[2024-07-28] VITALS (8 sets, daily range): BP systolic 117–142; BP diastolic 46–71; PULSE 72–94; RESP 14–20; TEMP 97.1–98.7; O2SAT 93–98
[2024-07-29 01:00] VITALS: BP 121/81; PULSE 81; RESP 17; TEMP 98.3; O2SAT 98
[2024-07-29 05:00] VITALS: BP 153/63; PULSE 74; RESP 17; TEMP 97.9; O2SAT 96
[2024-07-29 08:00] VITALS: PULSE 74; PULSE 80; RESP 18
[2024-07-29 08:30] VITALS: BP 140/77; PULSE 82; RESP 17; TEMP 97.6; O2SAT 96
[2024-07-29 12:56] VITALS: BP 140/55; PULSE 58; RESP 18; TEMP 97.6; O2SAT 95
== END 2024-07-29 13:00 | DRG 542 ==
LOC: EDSEX 14:57 → EDBD 14:57 → ER 14:57 → TELE 20:38 → TELE-WESTW 20:38
PROVIDERS: ADMIT Nurse Practitioner Family; ATTEND Nurse Practitioner Family
DX: M48.54XA Collapsed vertebra, not elsewhere classified, thoracic region, initial encounter for fracture (principal); I50.23 Acute on chronic systolic (congestive) heart failure; I13.0 Hypertensive heart and chronic kidney disease with heart failure and stage 1 through stage 4 chronic kidney disease, or unspecified chronic kidney disease; N39.0 Urinary tract infection, site not specified; N17.9 Acute kidney failure, unspecified; M48.57XA Collapsed vertebra, not elsewhere classified, lumbosacral region, initial encounter for fracture; M48.55XA Collapsed vertebra, not elsewhere classified, thoracolumbar region, initial encounter for fracture; M48.56XA Collapsed vertebra, not elsewhere classified, lumbar region, initial encounter for fracture; N18.9 Chronic kidney disease, unspecified; M81.0 Age-related osteoporosis without current pathological fracture; G89.29 Other chronic pain; Z87.81 Personal history of (healed) traumatic fracture; Z90.12 Acquired absence of left breast and nipple
CPT/HCPCS: 36415; 71045; 72040; 72070; 72100; 72128; 72131; 80053; 81001; 83690; 83735; 83880; 84484; 85025; 87086; 97110; 97116; 97163; G0378

== ENCOUNTER 2025-06-15 16:52 | Inpatient (IN) | payer OTHER, MEDICAID ==
[~2025-06-15] VITALS: Ht 167.6 cm; Wt 51.5 kg
[~2025-06-15 16:52] MED LIST changes: +FURO20TA3 PO; +MECL12.595 PO; +METO25TA5 PO; +POTA-215 PO
[2025-06-15 17:00] VITALS: PULSE 84; RESP 18; O2SAT 94
--- NOTE | 2025-06-15 17:05 | ED.PDOC ---
Chastity. trauma (HPI) HPI Comments An 84 year-old female, with a PMHX of CHF and HTN, presents to the ED via EMS with a chief complaint of multiple trama s/p fall minutes ago. Per EMS, patient was found by daughter laying by a dresser after ground level fall. Patient presents with global pain concerns and contusion to L elbow following the fall. Upon evaluation, patient is able on her own, deaf, but coherent. Patient has no further complaints at this time. Patient denies head trauma and further denies other associated symptoms of LOC, N/V, dizziness, fever, or chills. Vital signs were stable. Chief Complaint: Fall Injury Time Seen by MD: 17:01 Primary Care Provider: TAMIKO Reviewed notes: Nurses Notes, Resource Center Teacher Notes, Medications, Allergies Allergies: Coded Allergies: NO KNOWN ALLERGIES (Unverified , 03/07/16) Home Meds Reported Medications Potassium Chloride (Klor-Con M10) 10 Meq Tab, 1 TAB PO BID, #30 TAB 5 Refills 07/27/24 Furosemide (Furosemide) 20 Mg Tab, 20 MG PO BIDD for 30 Days, MG 07/27/24 Metoprolol Tartrate (Metoprolol Tartrate) 25 Mg Tab, 12.5 MG PO BID for 30 Days, MG 07/27/24 Cinnamon Bark (Cinnamon) 500 Mg Tab, 1000 MG PO BID, TAB 01/10/24 Spironolactone (Spironolactone) 25 Mg Tab, 1 TAB PO DAILY 01/10/24 Midodrine Hcl (Midodrine Hcl) 5 Mg Tab, 1 TAB PO TID 01/10/24 Ascorbic Acid (Ascorbic Acid) 500 Mg Tab, 1000 MG PO TID for 30 Days, MG 11/26/23 Hydrocodone-Acetaminophen (Hydrocodone Bitartrate/AC 10-325 mg) 1 Tab Tab, 1 TAB PO PRN, TAB 09/01/23 Ibandronate Sodium (IBANDRONATE SODIUM) 150 Mg Tab, 150 MG PO monthly, TAB 09/01/23 Lisinopril (Lisinopril) 40 Mg Tab, 1 TAB PO DAILY 09/01/23 Amlodipine Besylate (Amlodipine Besylate) 5 Mg Tab, 1 TAB PO DAILY 09/01/23 Gabapentin (Gabapentin) 600 Mg Tab, 1 TAB PO TID 09/01/23 Information Source: Patient, Emergency Med Personnel Mode of Arrival: EMS Severity: Moderate Timing: Hours Duration: Since onset Prehospital treatment: None Location: (L) Elbow, (R) Elbow, (L) Hip, (L) Knee, (R) Knee, Other (general tamiko dy pains ) Location of laceration: None Mechanism: Blunt trauma, Fall Associated signs and symtoms: Other (General Body Pain / Bruise to L Elbow ) Past Medical History PAST MEDICAL HISTORY: CHF, HTN Surgical History: Denies all surgeries PHLEBOTOMIST LAB ASSISTANT History: No Pertinent PHLEBOTOMIST LAB ASSISTANT History Family History Family History: Reviewed,noncontributory to illness Social History Smoker: Non-Smoker Alcohol: Rarely Drugs: Denies Drug Use Lives In: Home Constitutional: reports: others (global pain concerns ); denies: chills, diaphoresis, fatigue, fever, malaise, sweats, weakness EENTM: denies: blurred vision, double vision, ear bleeding, ear discharge, ear drainage, ear pain, ear ringing, eye pain, eye redness, hearing loss, mouth pain, mouth swelling, nasal discharge, nose bleeding, nose congestion, nose pain, photophobia, tearing, throat pain, throat swelling, voice changes, others Respiratory: denies: cough, hemoptysis, orthopnea, SOB at rest, shortness of breath, SOB with excertion, stridor, wheezing, others Cardiovascular: denies: chest pain, dizzy spells, diaphoresis, Dyspnea on exertion, edema, irregular heart beat, left arm pain, lightheadedness, pa lpitations, PND, syncope, others Gastrointestinal: denies: abdomen distended, abdominal pain, blood streaked bowels, constipated, diarrhea, dysphagia, difficulty swallowing, hematemesis, melena, nausea, poor appetite, poor fluid intake, rectal bleeding, rectal pain, vomiting, others Genitourinary: denies: abnormal vagina bleeding, burning, dyspareunia, dysuria, flank pain, frequency, hematuria, incontinence, pain, , vagina discharge, urgency, others Neurological: denies: dizziness, fainting, headache, left sided numbness, left sided weakness, numbness, paresthesia, pre-existing deficit, right sided numbness, right sided weakness, seizure, speech problems, tingling, tremors, weakness, others Musculoskeletal: reports: others (Patient complains of pain to bilateral elbows , bilateral knees and left-sided hip.); denies: back pain, gout, joint pain, joint swelling, muscle pain, muscle stiffness, neck pain Integumetry: reports: bruises (Left elbow); denies: change in color, change in hair/nails, dryness, laceration, lesions, lumps, rash, wounds, others Allergic/Immunocompromised: denies: Difficulty Healing, Frequent Infections, Hives, Itching, others Hematologic/Lymphatic: denies: anemia, blood clots, easy bleeding, easy bruising, swollen glands, others Endocrine: denies: excessive hunger, excessive sweating, excessive thirst, excessive urination, flushing, intolerance to cold, intolerance to heat, unexplained weight gain, unexplained weight loss, others Psychiatric: denies: anxiety, bipolar disorder, depression, hopeless, panic disorder, schizophrenia, sleepless, suicidal, others All Other Systems: Reviewed and Negative Physical Exam Exam Comments Patient Reports Global Body Pain General Appearance: Moderate Distress (Due to global pain concerns.), Normal HEENT: Normal ENT Inspection, Pharynx Normal, TMs Normal Neck: Full Range of Motion, Non-Tender, Normal, Normal Inspection Respiratory: Chest Non-Tender, Lungs Clear, No Accessory Muscle Use, No Respiratory Distress, Normal Breath Sounds Cardiovascular: No Edema, No JVD, No Murmur, No Gallop, Normal Peripheral Pulses, Regular Rate/Rhythm Breast Exam: Deferred Gastrointestinal: No Organomegaly, Non Tender, No Pulsatile Mass, Normal Bowel Sounds, Soft Genitalia: Deferred Pelvic: Deferred Rectal: Deferred Extremities: Other (Bilateral elbows are diffusely tender to palpation with the left side greater than right. Left side reveals some significant edema and ecchymosis. Both displayed reduced range of motion. Bilateral knees are tender to palpation throughout anterior aspect with moderate reduced range of motion and left hip is tender to palpation throughout the iliac crest and into the femoral head region. Reduced range of motion is significant throughout.) Musculoskeletal : Apperance: Normal, Other (Patient reports global body pains ) Neurologic: Alert, No Motor Deficits, Normal Affect, Normal Mood, No Sensory Deficits Cerebellar Function: NOT DONE Reflexes: NOT DONE Skin: Bruises (Left Elbow ), Dry, Normal Color, Warm Lymphatic: No Adenopathy Was a procedure done? Was a procedure done?: No Differential Diagnosis Multiple Trauma: Abrasions, Contusion, Laceration, Other (Fractures) X-Ray, Labs, Meds, VS Vital Signs Date Time Temp Pulse Resp B/P (MAP) Pulse Ox O2 Delivery O2 Flow Rate FiO2 06/15/25 23:08 85 06/15/25 20:00 90 06/15/25 17:00 84 18 94 Room Air* 0 21 06/15/25 17:00 82 16 117/64 (81) 94 06/15/25 16:57 99.0 102 18 128/56 96 99.0 Lab Test 06/15/25 22:19 06/15/25 20:30 06/15/25 18:24 06/15/25 17:31 Range/Units Urine Color Light-yellow Yellow Urine Clarity Clear Clear Urine pH 7.5 5.0-9.0 Urine Specific [place] 1.011 1.001-1.035 Urine Protein Negative Negative Urine Ketones Negative Negative Urine Blood Negative Negative /uL Urine Nitrite Negative Negative Urine Bilirubin Negative Negative Urine Urobilinogen Normal Negative mg/dL Urine Leukocyte Esterase 1+ Negative /uL Urine RBC 3 0 - 4 /hpf Urine Microscopic WBC 61 H 0-5 /HPF Urine Squamous Epithelial Cells Few <5 /hpf Urine Bacteria Few H None Seen /hpf Urine Glucose Normal Normal mg/dL Troponin I High Sensitivity 43 *H 46 *H 45 *H </=34 ng/L White Blood Count 11.2 H 4.4-10.8 10^3/uL Red Blood Count 4.01 4.0-5.20 10^6/uL Hemoglobin 12.1 L 12.2-16.2 g/dL Hematocrit 35.2 L 36.0-46.0 % Mean Corpuscular Volume 87.7 80.0-100.0 fL Mean Corpuscular Hemoglobin 30.1 28.0-32.0 pg Mean Corpuscular Hemoglobin Concent 34.3 32.0-36.0 g/dL Red Cell Distribution Width 14.1 11.8-14.3 % Platelet Count 206 140-450 10^3/uL Mean Platelet Volume 8.6 6.9-10.8 fL Neutrophils (%) (Auto) 84.4 H 37.0-80.0 % Lymphocytes (%) (Auto) 6.4 L 10.0-50.0 % Monocytes (%) (Auto) 8.5 0.0-12.0 % Eosinophils (%) (Auto) 0.1 0.0-7.0 % Basophils (%) (Auto) 0.6 0.0-2.0 % Neutrophils # (Auto) 9.4 H 1.6-8.6 10 ^3/uL Lymphocytes # (Auto) 0.7 0.4-5.4 10 ^3/uL Monocytes # (Auto) 1.0 0-1.3 10 ^3/uL Eosinophils # (Auto) 0 0-0.8 10 ^3/uL Basophils # (Auto) 0.1 0-0.2 10 ^3/uL Nucleated Red Blood Cells 0.0 % Sodium Level 142 136-145 mmol/L Potassium Level 4.0 3.5-5.1 mmol/L Chloride Level 104 98-107 mmol/L Carbon Dioxide Level 29 20-31 mmol/L Anion Gap 9 5-15 Blood Urea Nitrogen 19 9-23 mg/dL Creatinine 1.38 H 0.550-1.02 mg/dL Glomerular Filtration Rate Calc 37 >90 mL/min BUN/Creatinine Ratio 13.8 10.0-20.0 Serum Glucose 107 H 74-106 mg/dL Lactic Acid Level 1.0 0.4-2.0 mmol/L Calcium Level 9.6 8.7-10.4 mg/dL Total Bilirubin 0.8 0.2-1.0 mg/dL Aspartate Amino Transferase (AST) 27 13-40 U/L Alanine Aminotransferase (ALT) 14 7-40 U/L Alkaline Phosphatase 80 46-116 U/L B-Type Natriuretic Peptide 906.46 0-100 pg/mL Total Protein 5.9 5.7-8.2 g/dL Albumin 3.9 3.2-4.8 g/dL Current Medications Medications (Trade) Dose Ordered Sig/Tiarra Route Start Time Stop Time Status Last Admin Acetaminophen/ Hydrocodone Bitart (Taberg 10/325MG Tab) 1 tab ONCE ONCE PO 06/15/25 17:15 06/15/25 17:16 DC 06/15/25 17:28 Ceftriaxone Sodium 50 ml @ 100 mls/hr ONCE ONCE IV 06/15/25 23:00 06/15/25 23:29 DC 06/15/25 23:32 X-Ray, Labs, Meds, VS Comment All studies performed in the ED were evaluated by me personally. Serum lab oratories remarkable for an elevated troponin. EKG was pending at time of this note. Urinalysis confirmed a significant urinary tract infection and imaging studies of the bilateral knees was unremarkable for any acute fractures. Imaging studies of the pelvis were unremarkable for any fractures as was the right elbow, but left elbow revealed an olecranon fracture. Patient does not have proper home support and therefore, patient will be admitted for intermediate placement to aid her moving forward. Patient has received IV antibiotics to address her urinary tract infection as well as a splint placement to the left elbow. Patient is a [employer] patient and therefore, I spoke with the provider Axel Santiago. Advised him of patient presentation as well as imaging and laboratory results. He agreed to accept the patient as a admission. Time of 1ST Reevaluation: 22:55 Reevaluation 1ST: Improved Consultation: PCP Patient Education/Counseling: Diagnosis, Treatment Family Education/Counseling: Diagnosis, Treatment, No Family Present Departure 1 Departure Time of Disposition: 22:55 Impression: Primary Impression: Fall Additional Impressions: UTI (urinary tract infection) Fracture of left olecranon process Risk for falls Contusion Elevated troponin I level Disposition: 09 ADMITTED INPATIENT Condition: Stable Discharged With: Self Critical Care Note Critical Care Time?: No Stability Stability form required: No Heart Score Heart Score: Heart Score Response (Comments) Value History N/A 0 EKG N/A 0 Age >65 2 Risk Factors 1 or 2 risk factors 1 Troponin 1-2 x's Normal limit 1 Total 4 I personally scribed for DAT BATES PAC ([email or web address]) on 06/15/25 at 17:05. Electronically submitted by Nikki Obregon ([email or web address]). I personally scribed for DAT BATES PAC (Oscar) on 06/15/25 at 17:13. Electronically submitted by Nikki Obregon ([email or web address]). DAT BATES PAC Jun 15, 2025 17:05
[2025-06-15] MEDS: HYDROcodone-ACET 10/325MG TAB PO ONE (17:28)
[2025-06-15 17:50] LABS: Hematocrit 35.2 % (36.0-46.0); Hemoglobin 12.1 g/dL (12.2-16.2); Mean Corpuscular Hemoglobin 30.1 pg (28.0-32.0); Mean Corpuscular Volume 87.7 fL (80.0-100.0); Nucleated Red Blood Cells % 0.0 %
[2025-06-15 18:07] LABS: Alanine Aminotransferase 14 U/L (7-40); Alkaline Phosphatase 80 U/L (46-116); Anion Gap 9 (5-15); BUN/Creatinine Ratio 13.8 (10.0-20.0); Blood Urea Nitrogen 19 mg/dL (9-23); Calcium 9.6 mg/dL (8.7-10.4); Carbon Dioxide 29 mmol/L (20-31); Chloride 104 mmol/L (98-107); Potassium 4.0 mmol/L (3.5-5.1); Sodium 142 mmol/L (136-145); Total Protein 5.9 g/dL (5.7-8.2)
[2025-06-15 18:08] LABS: Albumin 3.9 g/dL (3.2-4.8); Bilirubin, Total 0.8 mg/dL (0.2-1.0)
[2025-06-15 18:11] LABS: Glucose 107 mg/dL (74-106)
--- NOTE | 2025-06-15 18:25 | DVH ---
EXAM: CT PELVIS WO CONTRAST INDICATION: Fall/trauma EXAM DATE: 06/15/2025 05:29 PM COMPARISON: None TECHNIQUE: Multiple axial CT images of the pelvis were obtained using bone algorithm. Axial and coron al reformatting was done. Bone and soft tissue windows were reviewed. Radiation Dose Information: CT Dose: CTDI volume is 8.85 mGy. Dose-length product is 289.8 mGy*cm Findings: Lack of intravenous contrast limits evaluation of solid organs and vasculature. No evidence of an acute fracture, dislocation, blastic, lytic, or osseous destructive lesions. No sup erficial soft tissue abnormalities. Left femoral fixation. The urinary bladder is well-distended and unremarkable. The distal ureters, uterus and bilateral adne xa are within normal limits. No dilatation of the visualized portion of the bowel. No intraluminal free air or free fluid. Impression: 1. No definite evidence of an acute fracture.
--- NOTE | 2025-06-15 18:46 | DVH ---
EXAM: XY R KNEE 3V XRAY CLINICAL HISTORY: Fall/trauma COMPARISON: XY R KNEE 3V XRAY on DOS: 11/27/23, XY L KNEE 3V XRAY on DOS: 11/27/23, MRI RT KNEE WITH OU T CON on DOS: 11/26/23 TECHNIQUE: XY R KNEE 3V XRAY Findings/Impression: 3 views of the right knee. There is no evidence of an acute fracture, dislocation, blastic, or lytic lesions. No radiopaque foreign bodies. Moderate atherosclerosis. No joint effusion or superficial soft tissue abnormalities.
--- NOTE | 2025-06-15 18:57 | DVH ---
EXAM: XY R ELBOW 3 VIEW XRAY REASON FOR EXAM: Fall/trauma TECHNIQUE: AP, lateral, and oblique views of the right elbow are submitted for review. COMPARISON: XY R KNEE 3V XRAY on DOS: 11/27/23, XY R TIB FIB XRAY on DOS: 08/31/23 FINDINGS: There is demineralization of the bones. There is no acute fracture or dislocation. There i s no elbow effusion. The soft tissues are grossly unremarkable. IMPRESSION: No acute fracture or dislocation.
--- NOTE | 2025-06-15 18:58 | DVH ---
EXAM: XY L KNEE 3V XRAY REASON FOR EXAM: Fall/trauma TECHNIQUE: AP, oblique, and cross-table lateral views of the left knee are submitted for review. COMPARISON: XY R KNEE 3V XRAY on DOS: 11/27/23, XY L KNEE 3V XRAY on DOS: 11/27/23, MRI RT KNEE WITH OU T CON on DOS: 11/26/23, MRI LEFT KNEE WO CONTRAST on DOS: 11/26/23 FINDINGS: There is demineralization of the bones. There is no knee effusion. There is no acute fractu re or dislocation. There is moderate narrowing of the medial compartment with osteophyte formation. T here are vascular calcifications. IMPRESSION: No acute fracture or dislocation. Moderate medial compartment osteoarthritis.
[2025-06-15 19:00] VITALS: PULSE 86; RESP 14; O2SAT 93
--- NOTE | 2025-06-15 19:00 | DVH ---
EXAM: XY L ELBOW 3 VIEW XRAY REASON FOR EXAM: Fall/trauma TECHNIQUE: AP, oblique, and lateral views of the left elbow are submitted for review. COMPARISON: None FINDINGS: There is demineralization of the bones. There is acute, mildly comminuted fracture of the o lecranon with approximately 8 mm distraction of the proximal fracture fragment. There is an elbow eff usion. There is severe soft tissue swelling about the elbow. IMPRESSION: Acute fracture of the olecranon with associated elbow effusion and soft tissue swelling.
[2025-06-15 22:40] LABS: Urine Protein, UAD Negative (Negative)
[2025-06-15] MEDS: cefTRIAXone 1GM/50ML D5W 50 ML IV ONE (23:32)
--- NOTE | 2025-06-16 01:12 | DVH ---
Indication: head injury / dizziness Comparison: None Technique: Utilizing a multislice CT scanner, a CT scan of the brain was performed without intravenou s contrast. Coronal and sagittal reformatted images. All CT scans at this facility use dose modulation, iterative reconstruction, and/or weight based dosi ng when appropriate to reduce radiation dose to as low as reasonably achievable. Dose: CTDIvol: 52.35 mGy, DLP: 1136.35 mGy.cm FINDINGS: Evaluation is degraded by motion artifact. No acute territorial infarct, intracranial hemorrhage, or mass effect. There are global involutional changes with compensatory prominence of the ventricles and sulci. Patchy periventricular and subcorti tyra white matter hypoattenuation is nonspecific but may be related to small vessel ischemic disease. The orbits are normal. The paranasal sinuses and mastoid air cells are clear. The osseous structures are unremarkable. IMPRESSION: 1. No acute territorial infarct, intracranial hemorrhage, or mass effect. 2. Age-related involutional changes. Chronic microvascular changes. 3. If clinical symptoms persist, MRI may be beneficial in further evaluation.
[2025-06-16] MEDS ORDERED: SODIUM CHLORIDE 0.9% 1,000 ML IV SCH (02:45)
[2025-06-16] MEDS ORDERED: ONDANSETRON HCL 4 MG/2 ML VIAL IV PRN (02:45)
[2025-06-16] MEDS ORDERED: MECLIZINE HCL 25 MG TAB PO PRN (02:45)
[2025-06-16] MEDS ORDERED: ACETAMINOPHEN 325 MG TAB PO PRN (02:45)
[2025-06-16] MEDS ORDERED: NITROGLYCERIN 0.4 MG SL TAB SL PRN (02:45)
[2025-06-16] MEDS ORDERED: DOCUSATE SOD 100 MG CAP PO PRN (02:45)
[2025-06-16] MEDS ORDERED: MORPHINE SULFATE INJ 2 MG/ml SYRG IV PRN (02:45)
--- NOTE | 2025-06-16 03:04 | DVHHP2 ---
FREDY FAIRBANKS [employer] 06/16/25 0304: History of Present Illness Reason for Visit: Unwitnessed fall History of Present Illness 84-year-old female with past medical history of CHF, COPD, hypertension presents with complaints of an unwitnessed fall. Information in this HPI is limited due to the patient being a poor historian hard of hearing. Patient is endorsing hip pain, bilateral elbow pain. States she hit her head and has been feeling dizzy. EMS reported the patient fell down some time yesterday and spent the whole day on the ground until a family member found her on the ground. During the emergency department evaluation W11.2, H&H 12.1/35.2, PLT. Na 142, K4.0, BUN 19, creatinine of 1.38, GFR 37, troponin 45/46/43, BNP 906, LA 1.0, UA positive for leukocyte esterase. Bilateral knee x-rays negative for acute fracture dislocation. X-ray left elbow demonstrates acute fracture of the olecranon with associated elbow effusion soft tissue swelling. CT of the head was negative for acute findings. Patient endorses that she lives home alone with her animals. States she normally uses her walker to ambulate. At this time there are no complaints of fevers, chills, shortness of breath, chest pain, palpitations, LOC. Cardiovascular: CHF, HTN Pulmonary: COPD Smoke: No ALCOHOL: none Drugs: None Lives: with Family Review of Systems Constitutional: No: Fever, Chills, Sweats, Weakness, Malaise, Other Eyes: No: Pain, Vision change, Conjunctivae inflammation, Eyelid inflammation, Other, Redness ENT: No: Ear pain, Ear discharge, Nose pain, Nose discharge, Nose congestion, Mouth pain, Mouth swelling, Throat pain, Throat swelling, Other Respiratory: No: Cough, Dry, Shortness of breath, SOB with excertion, Wheezing, Hemoptysis, Pleuritic Pain, Sputum, Wheezing, Other Cardiovascular: Lt Headedness; No: Chest Pain, Palpitations, Orthopnea, Paroxysmal Noc. Dyspnea, Edema, Other Gastrointestinal: No: Nausea, Vomiting, Abdominal Pain, Diarrhea, Constipation, Melena, Hematochezia, Other Genitourinary: No Dysuria, No Frequency, No Incontinence, No Hematuria, No Retention, No Other Musculoskeletal: arm pain, leg pain; No: other, neck pain, shoulder pain, back pain, hand pain, foot pain Skin: No: Rash, Lesions, Jaundice, Bruising, Other Neurological: No: Weakness, Numbness, Incoordination, Change in speech, Confusion, Seizures, Other Allergies: Coded Allergies: NO KNOWN ALLERGIES (Unverified , 03/07/16) Medications Current Medications Medications Dose Ordered Sig/Tiarra Route Start Time Stop Time Status Last Admin Dose Admin Sodium Chloride 1,000 ml @ 50 mls/hr Q20H IV 06/16/25 02:45 06/16/25 12:44 UNV Docusate Sodium 100 mg BIDPRN PRN PO 06/16/25 02:45 UNV Acetaminophen 650 mg Q6HP PRN PO 06/16/25 02:45 UNV Acetaminophen/ Hydrocodone Bitart 1 tab Q4HP PRN PO 06/16/25 02:45 UNV Ondansetron HCl 4 mg Q4HP PRN IV 06/16/25 02:45 UNV Enoxaparin Sodium 40 mg DAILY SC 06/16/25 10:00 UNV Nitroglycerin 0.4 mg Q5MINP PRN SL 06/16/25 02:45 UNV Morphine Sulfate 2 mg Q30M PRN IV 06/16/25 02:45 UNV Ceftriaxone Sodium 50 ml @ 100 mls/hr DAILY IV 06/16/25 10:00 UNV Metoprolol Tartrate 25 mg DAILY PO 06/16/25 10:00 UNV Furosemide 20 mg BID PO 06/16/25 10:00 UNV Meclizine HCl 12.5 mg BID PRN PO 06/16/25 02:45 UNV Exam Vital Signs Vital Signs Date Time Temp Pulse Resp B/P (MAP) Pulse Ox O2 Delivery O2 Flow Rate FiO2 06/16/25 01:00 93 14 139/40 (73) 94 06/15/25 19:00 Room Air* 0 21 06/15/25 19:00 98.6 98.6 General Appearance: Alert, Oriented X3, Cooperative, mild distress HEENT: Atraumatic, PERRLA, EOMI Respiratory: Clear to auscultation, Normal air movement Cardiovascular: Regular rate, Normal S1, Normal S2 Abdominal: Normal bowel sounds, Soft, No tenderness Extremities: No clubbing, No cyanosis, Other (Left elbow edema) Neuro: Normal speech, Strength at 5/5 X4 ext Psych/Mental Status: Mental status NL, Mood NL Labs/Xrays Labs Test 06/15/25 22:19 06/15/25 20:30 06/15/25 17:31 Range/Units Urine Color Light-yellow Yellow Urine Clarity Clear Clear Urine pH 7.5 5.0-9.0 Urine Specific [place] 1.011 1.001-1.035 Urine Protein Negative Negative Urine Ketones Negative Negative Urine Blood Negative Negative /uL Urine Nitrite Negative Negative Urine Bilirubin Negative Negative Urine Urobilinogen Normal Negative mg/dL Urine Leukocyte Esterase 1+ Negative /uL Urine RBC 3 0 - 4 /hpf Urine Microscopic WBC 61 H 0-5 /HPF Urine Squamous Epithelial Cells Few <5 /hpf Urine Bacteria Few H None Seen /hpf Urine Glucose Normal Normal mg/dL Troponin I High Sensitivity 43 *H </=34 ng/L White Blood Count 11.2 H 4.4-10.8 10^3/uL Red Blood Count 4.01 4.0-5.20 10^6/uL Hemoglobin 12.1 L 12.2-16.2 g/dL Hematocrit 35.2 L 36.0-46.0 % Mean Corpuscular Volume 87.7 80.0-100.0 fL Mean Corpuscular Hemoglobin 30.1 28.0-32.0 pg Mean Corpuscular Hemoglobin Concent 34.3 32.0-36.0 g/dL Red Cell Distribution Width 14.1 11.8-14.3 % Platelet Count 206 140-450 10^3/uL Mean Platelet Volume 8.6 6.9-10.8 fL Neutrophils (%) (Auto) 84.4 H 37.0-80.0 % Lymphocytes (%) (Auto) 6.4 L 10.0-50.0 % Monocytes (%) (Auto) 8.5 0.0-12.0 % Eosinophils (%) (Auto) 0.1 0.0-7.0 % Basophils (%) (Auto) 0.6 0.0-2.0 % Neutrophils # (Auto) 9.4 H 1.6-8.6 10 ^3/uL Lymphocytes # (Auto) 0.7 0.4-5.4 10 ^3/uL Monocytes # (Auto) 1.0 0-1.3 10 ^3/uL Eosinophils # (Auto) 0 0-0.8 10 ^3/uL Basophils # (Auto) 0.1 0-0.2 10 ^3/uL Nucleated Red Blood Cells 0.0 % Sodium Level 142 136-145 mmol/L Potassium Level 4.0 3.5-5.1 mmol/L Chloride Level 104 98-107 mmol/L Carbon Dioxide Level 29 20-31 mmol/L Anion Gap 9 5-15 Blood Urea Nitrogen 19 9-23 mg/dL Creatinine 1.38 H 0.550-1.02 mg/dL Glomerular Filtration Rate Calc 37 >90 mL/min BUN/Creatinine Ratio 13.8 10.0-20.0 Serum Glucose 107 H 74-106 mg/dL Lactic Acid Level 1.0 0.4-2.0 mmol/L Calcium Level 9.6 8.7-10.4 mg/dL Total Bilirubin 0.8 0.2-1.0 mg/dL Aspartate Amino Transferase (AST) 27 13-40 U/L Alanine Aminotransferase (ALT) 14 7-40 U/L Alkaline Phosphatase 80 46-116 U/L B-Type Natriuretic Peptide 906.46 0-100 pg/mL Total Protein 5.9 5.7-8.2 g/dL Albumin 3.9 3.2-4.8 g/dL SEPSIS Sepsis Screen Date sepsis recognized/suspect: Jun 16, 2025 Time Sepsis recognized/suspect: 217 Recent Procedure: No On Antibiotic Therapy: Yes Respiratory Rate >20: No Heart Rate >90: No Temp<36 C (96.8 F) or >38.3 C: No SBP <90 or MAP <65 mmHG: No New Acute Mental Status Change: No Is the patient on CPAP, BIPAP,: No Physician Orders Insert Lees Catheter QSHIFT (06/15/25 22:15) Splints (06/15/25 ) Apply Sling (06/15/25 22:48) Head Without Contrast (06/16/25 00:11) Communication Order (06/16/25 00:11) Admit (06/16/25 02:38) Code Status (06/16/25 02:38) Vital Signs .PER UNIT PROTOCOL (06/16/25 02:38) Review Orders With Adm.Md (06/16/25 02:38) Encourage Activity As Tolerate (06/16/25 02:38) Consistent Carb(Ccho)Diabetes (06/16/25 Breakfast) Sodium Chloride 0.9% (06/16/25 02:45) Oxygen By Face Mask (06/16/25 02:38) Docusate Sodium Capsule (Colace Capsule) (06/16/25 02:45) Acetaminophen Tablet (Tylenol Tablet) (06/16/25 02:45) Notify Md Of Changes From Base (06/16/25 02:38) Advance Directive (06/16/25 02:38) Echo 2d Mode Cardiac Dop (06/16/25 02:38) Basic Metabolic Panel (06/16/25 05:00) Basic Metabolic Panel (06/17/25 05:00) Basic Metabolic Panel (06/18/25 05:00) Complete Blood Count (06/16/25 05:00) Complete Blood Count (06/17/25 05:00) Complete Blood Count (06/18/25 05:00) Patient Condition (06/16/25 02:38) Allergies (06/16/25 02:38) Hydrocodone-Acet 5/325mg Tab ([place] 532 (06/16/25 02:45) Ondansetron Hcl (Zofran) (06/16/25 02:45) Enoxaparin Sodium (Lovenox) (06/16/25 10:00) Nitroglycerin Sublingual (Ntrostat Subli (06/16/25 02:45) Morphine Sulfate Injection (06/16/25 02:45) Stat Ekg For Chest Pain (06/16/25 02:38) Notify Md Of Changes From Base (06/16/25 02:38) Horse Identifier For 24 Hours (06/16/25 02:38) Emergency Dysrhythmia Protocol (06/16/25 02:38) Rhythm Strips Once Every Shift (06/16/25 02:38) Oxygen By Nasal Cannula (06/16/25 02:38) * Cardiology Consult (06/16/25 02:38) Pt Request For Service (06/16/25 02:38) * Ramp Manager Consult (06/16/25 ) *Consult Dr. Higinio Kendrick (06/16/25 02:38) Orthostatic Vital Signs (06/16/25 02:38) Orthostatic Vital Signs (06/17/25 02:38) Orthostatic Vital Signs (06/18/25 02:38) Orthostatic Vital Signs (06/19/25 02:38) Troponin-I Hs (06/16/25 04:00) Troponin-I Hs (06/16/25 12:00) Ceftriaxone 1gm/50ml D5w (Rocephin) (06/16/25 10:00) Metoprolol Tartrate Tablet (Lopressor Ta (06/16/25 10:00) Furosemide Tablet (Lasix Tablet) (06/16/25 10:00) Meclizine Tablet (Antivert Tablet) (06/16/25 02:45) Vital Signs Date Time Temp Pulse Resp B/P (MAP) Pulse Ox O2 Delivery O2 Flow Rate FiO2 06/16/25 01:00 93 14 139/40 (73) 94 06/15/25 23:08 85 06/15/25 23:00 89 18 129/64 (85) 95 06/15/25 21:00 89 16 117/59 (78) 94 06/15/25 20:00 90 06/15/25 19:00 86 14 93 Room Air* 0 21 06/15/25 19:00 98.6 86 14 127/64 (85) 93 98.6 Laboratory Tests Test 06/15/25 17:31 Lactic Acid Level 1.0 mmol/L (0.4-2.0) White Blood Count 11.2 10^3/uL (4.4-10.8) H Medications Medications Dose Ordered Sig/Tiarra Route Start Time Stop Time Status Last Admin Dose Admin Acetaminophen/ Hydrocodone Bitart 1 tab ONCE ONCE PO 06/15/25 17:15 06/15/25 17:16 DC 06/15/25 17:28 1 TAB Ceftriaxone Sodium 50 ml @ 100 mls/hr ONCE ONCE IV 06/15/25 23:00 06/15/25 23:29 DC 06/15/25 23:32 100 MLS/HR Assessment/Plan Assessment/Plan Elevated troponin Unwitnessed fall UTI Acute fracture of left olecranon CHF not in exacerbation Dizziness Plan Admit telemetry Cardiology consult. Echocardiogram. Continue home medication. Serial troponin. Orthostatic vital signs. Orthopedic consult IVF NS @ 50 ml/hr x 10hrs. IV ABX Physical therapy evaluation Consult social science professor for home safety evaluation / SNF placement. Plan discussed with: Patient My Orders Orders - FREDY FAIRBANKS NP Procedure Category Date Status Time Head Without Contrast CT 06/16/25 Resulted 00:11 Communication Order ORDERS 06/16/25 Transmitted 00:11 Admit ADMIT 06/16/25 Transmitted 02:38 Code Status CODE 06/16/25 Transmitted 02:38 Vital Signs [facility] 06/16/25 In Process 02:38 Review Orders With [facility] 06/16/25 In Process Adm. 02:38 Encourage Activity As [facility] 06/16/25 In Process Tolerate 02:38 Consistent DIET 06/16/25 Transmitted Carb(Ccho)Diabetes Breakfast Sodium Chloride 0.9% PHA 06/16/25 Logged 02:45 Oxygen By Face Mask RT 06/16/25 Transmitted 02:38 Docusate Sodium PHA 06/16/25 Logged Capsule (Colace 02:45 Acetaminophen Tablet PHA 06/16/25 Logged (Tylenol Tablet) 02:45 Notify Of Changes [facility] 06/16/25 In Process From Base 02:38 Advance Directive [facility] 06/16/25 In Process 02:38 Echo 2d Mode Cardiac US 06/16/25 Logged DOP 02:38 Basic Metabolic Panel LAB 06/16/25 Logged 05:00 Basic Metabolic Panel LAB 06/17/25 Verified 05:00 Basic Metabolic Panel LAB 06/18/25 Verified 05:00 Complete Blood Count LAB 06/16/25 Logged 05:00 Complete Blood Count LAB 06/17/25 Verified 05:00 Complete Blood Count LAB 06/18/25 Verified 05:00 Patient Condition ORDERS 06/16/25 Transmitted 02:38 Allergies [facility] 06/16/25 In Process 02:38 Hydrocodone-Acet [facility] 06/16/25 Logged 5/325mg Tab ([place] 02:45 Ondansetron Hcl PHA 06/16/25 Logged (Zofran) 02:45 Enoxaparin Sodium PHA 06/16/25 Logged (Lovenox) 10:00 Nitroglycerin PHA 06/16/25 Logged Sublingual (Ntrostat 02:45 Morphine Sulfate PHA 06/16/25 Logged Injection 02:45 Stat Ekg For Chest [facility] 06/16/25 In Process Pain 02:38 Notify Of Changes [facility] 06/16/25 In Process From Base 02:38 Horse Identifier For [facility] 06/16/25 In Process 24 Hours 02:38 Emergency Dysrhythmia [facility] 06/16/25 In Process Protocol 02:38 Rhythm Strips Once JAIME 06/16/25 In Process Every Shift 02:38 Oxygen By Nasal RT 06/16/25 Transmitted Cannula 02:38 * Cardiology Consult CONS 06/16/25 Transmitted 02:38 Pt Request For Service PT 06/16/25 Logged 02:38 * Ramp Manager CONS 06/16/25 Transmitted Consult *Consult Dr. Sylvester CONS 06/16/25 Transmitted Mireille 02:38 Orthostatic Vital ORDERS 06/16/25 Transmitted Signs 02:38 Orthostatic Vital ORDERS 06/17/25 Transmitted Signs 02:38 Orthostatic Vital ORDERS 06/18/25 Transmitted Signs 02:38 Orthostatic Vital ORDERS 06/19/25 Transmitted Signs 02:38 Troponin-I Hs LAB 06/16/25 Logged 04:00 Troponin-I Hs LAB 06/16/25 Logged 12:00 Ceftriaxone 1gm/50ml PHA 06/16/25 Logged D5w (Rocephin) 10:00 Metoprolol Tartrate PHA 06/16/25 Logged Tablet (Lopressor Ta 10:00 Furosemide Tablet PHA 06/16/25 Logged (Lasix Tablet) 10:00 Meclizine Tablet PHA 06/16/25 Logged (Antivert Tablet) 02:45 Date of Service: Jun 16, 2025 Billing Provider: MARILUZ ZULETA MD Common Visit Codes: NOT BILLABLE MARILUZ ZULETA MD 06/16/25 1824: Review of Systems Allergies: Coded Allergies: NO KNOWN ALLERGIES (Unverified , 03/07/16) Additional Comments Additional Comments Additional Comments 84-year-old female with a known history of hypertension, congestive heart failure, COPD who had unwitnessed fall, found to have 1. Elevated troponin suspect demand ischemia, ruled out acute [place] 2. Unwitnessed fall rule out cardiac arrhythmia 3. Acute fracture of left olecranon with a joint effusion 4. Hypertension 5. Congestive heart failure not in exacerbation Number 60 urinary tract infection -2D echo, cardiology consultation, orthopedics consultation, continue antibiotics -aspiration and fall precautions. FREDY FAIRBANKS NP Jun 16, 2025 03:04 MARILUZ ZULETA MD Jun 16, 2025 18:24
[2025-06-16] MEDS: SODIUM CHLORIDE 0.9% 1,000 ML IV SCH (03:24)
[2025-06-16 04:11] LABS: Hematocrit 35.7 % (36.0-46.0); Hemoglobin 12.3 g/dL (12.2-16.2); Mean Corpuscular Hemoglobin 30.5 pg (28.0-32.0); Mean Corpuscular Volume 88.3 fL (80.0-100.0); Nucleated Red Blood Cells % 0.1 %
[2025-06-16 04:13] LABS: Chloride 105 mmol/L (98-107); Potassium 3.9 mmol/L (3.5-5.1); Sodium 145 mmol/L (136-145)
[2025-06-16 04:14] LABS: Anion Gap 9 (5-15); Carbon Dioxide 31 mmol/L (20-31)
[2025-06-16 04:15] LABS: Calcium 9.4 mg/dL (8.7-10.4)
[2025-06-16 04:19] LABS: BUN/Creatinine Ratio 16.5 (10.0-20.0); Blood Urea Nitrogen 21 mg/dL (9-23); Glucose 85 mg/dL (74-106)
[2025-06-16 06:36] VITALS: PULSE 78; RESP 20; O2SAT 97
--- NOTE | 2025-06-16 06:57 | ECG ---
[facility] Test Date: 2025-06-15 Test Time: 23:08:51 Pat Name: DIALLO SNYDER Department: ED Room: 0233T Gender: F Director Of Managed Care: : 1940 Requested By: DAT BATES Order Number: [id number] Reading MD: Nelson Taylor Measurements Intervals [place] Rate: 85 P: 41 CT: 183 QRS: -6 QRSD: 86 T: 62 QT: 374 QTc: 445 Interpretive Statements Sinus rhythm Left ventricular hypertrophy Electronically Signed On 06-17-2025 22:07:04 PDT by Nelson Taylor Please click the below link to view image of tracing.
[2025-06-16] MEDS: cefTRIAXone 1GM/50ML D5W 50 ML IV SCH (10:25)
[2025-06-16] MEDS: FUROSEMIDE 20 MG TAB PO SCH (10:26)
[2025-06-16] MEDS: METOPROLOL TARTRATE 25 MG TAB PO SCH (10:26)
[2025-06-16] MEDS: ENOXAPARIN SOD 30 MG/0.3 ML SYRINGE SC SCH (10:27)
--- NOTE | 2025-06-16 11:39 | DVHINCON2 ---
Date Seen: Jun 16, 2025 Referring Physician GRAZYNA Santiago Reason for Consultation Elevated troponin History of Present Illness An 84-year-old female presents to the ED after a mechanical fall, during which she sustained a left olecranon fracture. During her ED workup, mild troponin elevation was noted (initially 40, trending to 30s), prompting cardiology consultation. On assessment, the patient is alert and oriented to name but demonstrates some confusion, she denies chest pain, palpitations, dizziness, syncope, or dyspnea. A 12 lead ECG revealed sinus rhythm with no evidence of LVH., but no acute ischemic changes. Her medical history significant for CHF (HFmrEF, EF 45%). Chronic pulmonary hypertension, COPD, and longstanding hypertension. Past Medical History As stated in HPI Past Surgical History Denies Family History: FH: cancer G8 FATHER Family History Reviewed, non-contributory to the management of this case. Social History The patient lives at home, denies smoking, alcohol or illicit drugs abuse. Allergies: Coded Allergies: NO KNOWN ALLERGIES (Unverified , 03/07/16) Home Meds Reported Medications Potassium Chloride (Klor-Con M10) 10 Meq Tab, 1 TAB PO BID, #30 TAB 5 Refills 07/27/24 Furosemide (Furosemide) 20 Mg Tab, 20 MG PO BIDD for 30 Days, MG 07/27/24 Metoprolol Tartrate (Metoprolol Tartrate) 25 Mg Tab, 12.5 MG PO BID for 30 Days, MG 07/27/24 Cinnamon Bark (Cinnamon) 500 Mg Tab, 1000 MG PO BID, TAB 01/10/24 Spironolactone (Spironolactone) 25 Mg Tab, 1 TAB PO DAILY 01/10/24 Midodrine Hcl (Midodrine Hcl) 5 Mg Tab, 1 TAB PO TID 01/10/24 Ascorbic Acid (Ascorbic Acid) 500 Mg Tab, 1000 MG PO TID for 30 Days, MG 11/26/23 Hydrocodone-Acetaminophen (Hydrocodone Bitartrate/AC 10-325 mg) 1 Tab Tab, 1 TAB PO PRN, TAB 09/01/23 Ibandronate Sodium (IBANDRONATE SODIUM) 150 Mg Tab, 150 MG PO monthly, TAB 09/01/23 Lisinopril (Lisinopril) 40 Mg Tab, 1 TAB PO DAILY 09/01/23 Amlodipine Besylate (Amlodipine Besylate) 5 Mg Tab, 1 TAB PO DAILY 09/01/23 Gabapentin (Gabapentin) 600 Mg Tab, 1 TAB PO TID 09/01/23 Current Medications Current Medications Medications (Trade) Dose Ordered Sig/Tiarra Route PRN Reason Start Time Stop Time Status Last Admin Sodium Chloride 1,000 ml @ 50 mls/hr Q20H IV 06/16/25 02:45 06/16/25 03:04 DC Docusate Sodium (Colace Capsule) 100 mg BIDPRN PRN PO FOR CONSTIPATION 06/16/25 02:45 Acetaminophen (Tylenol Tablet) 650 mg Q6HP PRN PO PAIN SCALE 1-3 OR TEMP>100.4 06/16/25 02:45 Acetaminophen/ Hydrocodone Bitart ([place] 5/325MG Tab) 1 tab Q4HP PRN PO MODERATE PAIN (4-6 PAIN SCALE) 06/16/25 02:45 Ondansetron HCl (Zofran) 4 mg Q4HP PRN IV NAUSEA / VOMITING 06/16/25 02:45 Enoxaparin Sodium (Lovenox) 30 mg DAILY SC 06/16/25 10:00 06/16/25 10:27 Nitroglycerin (Ntrostat Sublingual) 0.4 mg Q5MINP PRN SL FOR CHEST PAIN 06/16/25 02:45 Morphine Sulfate 2 mg Q30M PRN IV FOR CHEST PAIN 06/16/25 02:45 Ceftriaxone Sodium 50 ml @ 100 mls/hr DAILY IV 06/16/25 10:00 06/16/25 10:25 Metoprolol Tartrate (Lopressor Tablet) 25 mg DAILY PO 06/16/25 10:00 06/16/25 10:26 Furosemide (Lasix Tablet) 20 mg BID PO 06/16/25 10:00 06/16/25 10:26 Meclizine HCl (Antivert Tablet) 12.5 mg BID PRN PO dizziness 06/16/25 02:45 Sodium Chloride 1,000 ml @ 50 mls/hr Q20H IV 06/16/25 03:15 06/16/25 08:14 DC 06/16/25 03:24 Review of Systems Constitutional: No symptom reported Ears, Nose, & Throat: No symptom reported Eyes: No symptom reported Neurological: No symptoms reported Pulmonary/Respiratory: No symptom reported Cardiovascular: Denies chest pain, palpitation, dizziness, syncope Gastrointestinal: No symptom reported Genitourinary: No symptom reported Musculoskeletal: No symptom reported Skin: No symptom reported Psychiatric: No symptom reported Endocrine: No symptom reported Hematologic/Lymphatic: No symptom reported Vital Signs Vital Signs Date Time Temp Pulse Resp B/P (MAP) Pulse Ox O2 Delivery O2 Flow Rate FiO2 06/16/25 11:30 91 129/78 06/16/25 06:36 20 97 Room Air* 0 21 06/16/25 06:15 98.2 98.2 Physical Exam INITIAL VITAL SIGNS: Reviewed by me GENERAL: Elderly female, frail appearing, mildly confused but cooperative. HEAD: Head is normocephalic and atraumatic. EYES: EOMI, PERRL. No scleral icterus. No conjunctival injection. ENT: Moist mucous membranes. NECK: Supple, No masses, Full range of motion. RESPIRATORY: No tachypnea. Clear breath sounds bilaterally. No wheezing, rales, rhonchi. CV: Regular rate and rhythm. No murmurs, rubs, or gallops. GI/: Active bowel sounds, soft, nondistended, nontender.. INTEGUMENTARY: Warm and dry. NEUROLOGIC: Alert and oriented. But somehow confused Labs/Diagnostic Data Labs Test 06/16/25 03:35 06/15/25 22:19 06/15/25 17:31 Range/Units White Blood Count 7.5 # 4.4-10.8 10^3/uL Red Blood Count 4.04 4.0-5.20 10^6/uL Hemoglobin 12.3 12.2-16.2 g/dL Hematocrit 35.7 L 36.0-46.0 % Mean Corpuscular Volume 88.3 80.0-100.0 fL Mean Corpuscular Hemoglobin 30.5 28.0-32.0 pg Mean Corpuscular Hemoglobin Concent 34.6 32.0-36.0 g/dL Red Cell Distribution Width 14.2 11.8-14.3 % Platelet Count 178 140-450 10^3/uL Mean Platelet Volume 8.7 6.9-10.8 fL Neutrophils (%) (Auto) 73.9 37.0-80.0 % Lymphocytes (%) (Auto) 14.8 10.0-50.0 % Monocytes (%) (Auto) 9.9 0.0-12.0 % Eosinophils (%) (Auto) 0.9 0.0-7.0 % Basophils (%) (Auto) 0.5 0.0-2.0 % Neutrophils # (Auto) 5.5 1.6-8.6 10 ^3/uL Lymphocytes # (Auto) 1.1 0.4-5.4 10 ^3/uL Monocytes # (Auto) 0.7 0-1.3 10 ^3/uL Eosinophils # (Auto) 0.1 0-0.8 10 ^3/uL Basophils # (Auto) 0 0-0.2 10 ^3/uL Nucleated Red Blood Cells 0.1 % Sodium Level 145 136-145 mmol/L Potassium Level 3.9 3.5-5.1 mmol/L Chloride Level 105 98-107 mmol/L Carbon Dioxide Level 31 20-31 mmol/L Anion Gap 9 5-15 Blood Urea Nitrogen 21 9-23 mg/dL Creatinine 1.27 H 0.550-1.02 mg/dL Glomerular Filtration Rate Calc 41 >90 mL/min BUN/Creatinine Ratio 16.5 10.0-20.0 Serum Glucose 85 74-106 mg/dL Calcium Level 9.4 8.7-10.4 mg/dL Troponin I High Sensitivity 35 *H </=34 ng/L Urine Color Light-yellow Yellow Urine Clarity Clear Clear Urine pH 7.5 5.0-9.0 Urine Specific [place] 1.011 1.001-1.035 Urine Protein Negative Negative Urine Ketones Negative Negative Urine Blood Negative Negative /uL Urine Nitrite Negative Negative Urine Bilirubin Negative Negative Urine Urobilinogen Normal Negative mg/dL Urine Leukocyte Esterase 1+ Negative /uL Urine RBC 3 0 - 4 /hpf Urine Microscopic WBC 61 H 0-5 /HPF Urine Squamous Epithelial Cells Few <5 /hpf Urine Bacteria Few H None Seen /hpf Urine Glucose Normal Normal mg/dL Lactic Acid Level 1.0 0.4-2.0 mmol/L Total Bilirubin 0.8 0.2-1.0 mg/dL Aspartate Amino Transferase (AST) 27 13-40 U/L Alanine Aminotransferase (ALT) 14 7-40 U/L Alkaline Phosphatase 80 46-116 U/L B-Type Natriuretic Peptide 906.46 0-100 pg/mL Total Protein 5.9 5.7-8.2 g/dL Albumin 3.9 3.2-4.8 g/dL PROCEDURE(s): CXRP - CHEST PORTABLE REASON: HF ORDER NUMBER(s): [id number], ACCESSION NUMBER(s): [id number] EXAM: XY CHEST PORTABLE HISTORY: HF TECHNIQUE: 1 view of the chest COMPARISON: XY CHEST PORTABLE on DOS: 07/27/24 FINDINGS/IMPRESSION: LUNGS: Elevation of the right hemidiaphragm. MEDIASTINUM: Unremarkable BONES: No acute osseous abnormality. Unchanged likely sequelae of degenerative change of bilateral [place] and right proximal humeral possible prior traumatic injury. Age-indeterminate possible right lower lateral rib fractures. 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 Rendon ): Troponin levels are mildly elevated, but in the absence of chest pain, ischemic ECG changes, or symptoms of acute coronary syndrome, this appears most consistent with demand-mediated myocardial injury, likely related to physiologic stress from trauma and chronic comorbidities. The ECG shows sinus rhythm with LVH, and the patient remains hemodynamically stable without signs of acute heart failure or ischemia. Given the patient's age, frailty, and baseline heart disease, we recommend conservative management: No anticoagulation or invasive testing at this time. Monitor troponin trend, maintain hemodynamic stability, and continue supportive care. Given no significant change with current echocardiogram, there is no Cardiology-specific intervention are indicated presently. If the patient's condition worsens or develops new symptoms, we would reassess. Otherwise, cardiology will sign off from active management. This medical document was created using an electronic medical record system with voice recognition software and computerized dictation system. Although this document has been carefully reviewed, there might still be some phonetic and typographical errors. Occasional wrong-word or ``sound-alike substitutions may have occurred due to the inherent limitations of voice recognition software. These areas are purely typographical due to imperfections of the software programs and do not reflect any compromise in the patient's medical care. Please read the chart carefully and recognize, using context, where these substitutions have occurred. Plan discussed with: Patient Plan discussed with: Patient NYHA Physical activity limitations: Class2(Slight)fatigue,sob Date of Service: Jun 16, 2025 Billing Provider: DEBBIE RENDON MD Cardiology Common Codes: CONSULT ONLY AMANDA PEARCE Jun 16, 2025 11:39
--- NOTE | 2025-06-16 12:16 | DVH ---
EXAM: XY CHEST PORTABLE HISTORY: HF TECHNIQUE: 1 view of the chest COMPARISON: XY CHEST PORTABLE on DOS: 07/27/24 FINDINGS/IMPRESSION: LUNGS: Elevation of the right hemidiaphragm. MEDIASTINUM: Unremarkable BONES: No acute osseous abnormality. Unchanged likely sequelae of degenerative change of bilateral [place] and right proximal humeral possible prior traumatic injury. Age-indeterminate possible right lower lateral rib fractures. OTHER: None
[2025-06-16 21:00] VITALS: BP 137/75; PULSE 104; RESP 20; TEMP 97.7; O2SAT 94
[2025-06-16 21:02] VITALS: PULSE 104; RESP 20; O2SAT 94
[2025-06-16] MEDS: HYDROcodone-ACET 5/325MG TAB PO PRN (23:02)
[2025-06-17] VITALS (8 sets, daily range): BP systolic 117–134; BP diastolic 49–88; PULSE 63–99; RESP 14–19; TEMP 97.7–98.1; O2SAT 90–96
[2025-06-17 06:32] LABS: Hematocrit 35.8 % (36.0-46.0); Hemoglobin 12.1 g/dL (12.2-16.2); Mean Corpuscular Hemoglobin 30.4 pg (28.0-32.0); Mean Corpuscular Volume 90.2 fL (80.0-100.0); Nucleated Red Blood Cells % 0.0 %
[2025-06-17 06:34] LABS: Chloride 102 mmol/L (98-107); Potassium 3.7 mmol/L (3.5-5.1); Sodium 143 mmol/L (136-145)
[2025-06-17 06:35] LABS: Anion Gap 15 (5-15); Carbon Dioxide 26 mmol/L (20-31)
[2025-06-17 06:36] LABS: Calcium 9.2 mg/dL (8.7-10.4)
[2025-06-17 06:40] LABS: BUN/Creatinine Ratio 19.5 (10.0-20.0); Blood Urea Nitrogen 23 mg/dL (9-23); Glucose 64 mg/dL (74-106)
--- NOTE | 2025-06-17 06:57 | DVHINCON2 ---
Date of service: Jun 16, 2025 Reason for Consultation Left olecranon fracture History of Present Illness 84 yo F states she got dizzy and fell on arms/knees. Pain in multiple areas of her body. No current cp/sob/abd pain/nausea/vomiting. Family History: FH: cancer G8 FATHER Allergies: Coded Allergies: NO KNOWN ALLERGIES (Unverified , 03/07/16) Home Meds Reported Medications Potassium Chloride (Klor-Con M10) 10 Meq Tab, 1 TAB PO BID, #30 TAB 5 Refills 07/27/24 Furosemide (Furosemide) 20 Mg Tab, 20 MG PO BIDD for 30 Days, MG 07/27/24 Metoprolol Tartrate (Metoprolol Tartrate) 25 Mg Tab, 12.5 MG PO BID for 30 Days, MG 07/27/24 Cinnamon Bark (Cinnamon) 500 Mg Tab, 1000 MG PO BID, TAB 01/10/24 Spironolactone (Spironolactone) 25 Mg Tab, 1 TAB PO DAILY 01/10/24 Midodrine Hcl (Midodrine Hcl) 5 Mg Tab, 1 TAB PO TID 01/10/24 Ascorbic Acid (Ascorbic Acid) 500 Mg Tab, 1000 MG PO TID for 30 Days, MG 11/26/23 Hydrocodone-Acetaminophen (Hydrocodone Bitartrate/AC 10-325 mg) 1 Tab Tab, 1 TAB PO PRN, TAB 09/01/23 Ibandronate Sodium (IBANDRONATE SODIUM) 150 Mg Tab, 150 MG PO monthly, TAB 09/01/23 Lisinopril (Lisinopril) 40 Mg Tab, 1 TAB PO DAILY 09/01/23 Amlodipine Besylate (Amlodipine Besylate) 5 Mg Tab, 1 TAB PO DAILY 09/01/23 Gabapentin (Gabapentin) 600 Mg Tab, 1 TAB PO TID 09/01/23 Current Medications Current Medications Medications (Trade) Dose Ordered Sig/Tiarra Route PRN Reason Start Time Stop Time Status Last Admin Enoxaparin Sodium (Lovenox) 30 mg DAILY SC 06/16/25 10:00 06/16/25 10:27 Ceftriaxone Sodium 50 ml @ 100 mls/hr DAILY IV 06/16/25 10:00 06/16/25 10:25 Metoprolol Tartrate (Lopressor Tablet) 25 mg DAILY PO 06/16/25 10:00 06/16/25 10:26 Furosemide (Lasix Tablet) 20 mg BID PO 06/16/25 10:00 06/16/25 22:50 Review of Systems as per HPI Vital Signs Vital Signs Date Time Temp Pulse Resp B/P (MAP) Pulse Ox O2 Delivery O2 Flow Rate FiO2 06/17/25 06:20 83 18 93 06/17/25 05:00 97.7 130/81 (97) 97.7 06/16/25 21:02 Room Air* 0 21 Physical Exam NAD alert to self LUE: +we/wf/intrinsics RP 2+ Labs/Diagnostic Data Labs Test 06/17/25 05:52 06/16/25 12:32 06/15/25 22:19 06/15/25 17:31 Range/Units White Blood Count 7.6 4.4-10.8 10^3/uL Red Blood Count 3.97 L 4.0-5.20 10^6/uL Hemoglobin 12.1 L 12.2-16.2 g/dL Hematocrit 35.8 L 36.0-46.0 % Mean Corpuscular Volume 90.2 80.0-100.0 fL Mean Corpuscular Hemoglobin 30.4 28.0-32.0 pg Mean Corpuscular Hemoglobin Concent 33.7 32.0-36.0 g/dL Red Cell Distribution Width 14.7 H 11.8-14.3 % Platelet Count 189 140-450 10^3/uL Mean Platelet Volume 8.6 6.9-10.8 fL Neutrophils (%) (Auto) 71.6 37.0-80.0 % Lymphocytes (%) (Auto) 16.8 10.0-50.0 % Monocytes (%) (Auto) 8.5 0.0-12.0 % Eosinophils (%) (Auto) 2.4 0.0-7.0 % Basophils (%) (Auto) 0.7 0.0-2.0 % Neutrophils # (Auto) 5.4 1.6-8.6 10 ^3/uL Lymphocytes # (Auto) 1.3 0.4-5.4 10 ^3/uL Monocytes # (Auto) 0.6 0-1.3 10 ^3/uL Eosinophils # (Auto) 0.2 0-0.8 10 ^3/uL Basophils # (Auto) 0.1 0-0.2 10 ^3/uL Nucleated Red Blood Cells 0.0 % Sodium Level 143 136-145 mmol/L Potassium Level 3.7 3.5-5.1 mmol/L Chloride Level 102 98-107 mmol/L Carbon Dioxide Level 26 20-31 mmol/L Anion Gap 15 5-15 Blood Urea Nitrogen 23 9-23 mg/dL Creatinine 1.18 H 0.550-1.02 mg/dL Glomerular Filtration Rate Calc 45 >90 mL/min BUN/Creatinine Ratio 19.5 10.0-20.0 Serum Glucose 64 L 74-106 mg/dL Calcium Level 9.2 8.7-10.4 mg/dL Troponin I High Sensitivity 30 </=34 ng/L Urine Color Light-yellow Yellow Urine Clarity Clear Clear Urine pH 7.5 5.0-9.0 Urine Specific [place] 1.011 1.001-1.035 Urine Protein Negative Negative Urine Ketones Negative Negative Urine Blood Negative Negative /uL Urine Nitrite Negative Negative Urine Bilirubin Negative Negative Urine Urobilinogen Normal Negative mg/dL Urine Leukocyte Esterase 1+ Negative /uL Urine RBC 3 0 - 4 /hpf Urine Microscopic WBC 61 H 0-5 /HPF Urine Squamous Epithelial Cells Few <5 /hpf Urine Bacteria Few H None Seen /hpf Urine Glucose Normal Normal mg/dL Lactic Acid Level 1.0 0.4-2.0 mmol/L Total Bilirubin 0.8 0.2-1.0 mg/dL Aspartate Amino Transferase (AST) 27 13-40 U/L Alanine Aminotransferase (ALT) 14 7-40 U/L Alkaline Phosphatase 80 46-116 U/L B-Type Natriuretic Peptide 906.46 0-100 pg/mL Total Protein 5.9 5.7-8.2 g/dL Albumin 3.9 3.2-4.8 g/dL Plan/Recommendation 84 yo F with left olecranon fracture 1. NWB LUE 2. splint x 2 weeks 3. pain control 4. fu in ortho clinic in 2 weeks no plans for any surgery Plan discussed with: Patient MARCUS GTZ MD Jun 17, 2025 06:57
--- NOTE | 2025-06-17 17:20 | DVH ---
CLINICAL INDICATION: left hip pain TECHNIQUE: XY L HIP COMPLETE XRAY Comparison: XY L KNEE 3V XRAY on DOS: 06/15/25, XY L KNEE 3V XRAY on DOS: 11/27/23, MRI LEFT KNEE WO CON TRAST on DOS: 11/26/23 FINDINGS/IMPRESSION: : There is no evidence of acute fracture or dislocation. Osteopenia. 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
[2025-06-17] MEDS: Glucerna Carbsteady SHAKE Vanilla 8oz PO SCH (18:25)
[2025-06-18] MEDS ORDERED: Juven Fruit Punch Powder PACKET 28.8gm PO SCH (10:00)
--- NOTE | 2025-06-19 18:04 | DVHDS2 ---
Discharge Summary Date of Admission Jun 16, 2025 at 02:38 Date of Discharge: Jun 17, 2025 Labs/Diagnostic Data: Laboratory Results Test 06/17/25 05:52 06/16/25 12:32 06/15/25 22:19 06/15/25 17:31 White Blood Count 7.6 10^3/uL (4.4-10.8) Red Blood Count 3.97 10^6/uL (4.0-5.20) Hemoglobin 12.1 g/dL (12.2-16.2) Hematocrit 35.8 % (36.0-46.0) Mean Corpuscular Volume 90.2 fL (80.0-100.0) Mean Corpuscular Hemoglobin 30.4 pg (28.0-32.0) Mean Corpuscular Hemoglobin Concent 33.7 g/dL (32.0-36.0) Red Cell Distribution Width 14.7 % (11.8-14.3) Platelet Count 189 10^3/uL (140-450) Mean Platelet Volume 8.6 fL (6.9-10.8) Neutrophils (%) (Auto) 71.6 % (37.0-80.0) Lymphocytes (%) (Auto) 16.8 % (10.0-50.0) Monocytes (%) (Auto) 8.5 % (0.0-12.0) Eosinophils (%) (Auto) 2.4 % (0.0-7.0) Basophils (%) (Auto) 0.7 % (0.0-2.0) Neutrophils # (Auto) 5.4 10 ^3/uL (1.6-8.6) Lymphocytes # (Auto) 1.3 10 ^3/uL (0.4-5.4) Monocytes # (Auto) 0.6 10 ^3/uL (0-1.3) Eosinophils # (Auto) 0.2 10 ^3/uL (0-0.8) Basophils # (Auto) 0.1 10 ^3/uL (0-0.2) Nucleated Red Blood Cells 0.0 % Sodium Level 143 mmol/L (136-145) Potassium Level 3.7 mmol/L (3.5-5.1) Chloride Level 102 mmol/L (98-107) Carbon Dioxide Level 26 mmol/L (20-31) Anion Gap 15 (5-15) Blood Urea Nitrogen 23 mg/dL (9-23) Creatinine 1.18 mg/dL (0.550-1.02) Glomerular Filtration Rate Calc 45 mL/min (>90) BUN/Creatinine Ratio 19.5 (10.0-20.0) Serum Glucose 64 mg/dL (74-106) Calcium Level 9.2 mg/dL (8.7-10.4) Troponin I High Sensitivity 30 ng/L (</=34) Urine Color Light-yellow (Yellow) Urine Clarity Clear (Clear) Urine pH 7.5 (5.0-9.0) Urine Specific [place] 1.011 (1.001-1.035) Urine Protein Negative (Negative) Urine Ketones Negative (Negative) Urine Blood Negative /uL (Negative) Urine Nitrite Negative (Negative) Urine Bilirubin Negative (Negative) Urine Urobilinogen Normal mg/dL (Negative) Urine Leukocyte Esterase 1+ /uL (Negative) Urine RBC 3 /hpf (0 - 4) Urine Microscopic WBC 61 /HPF (0-5) Urine Squamous Epithelial Cells Few /hpf (<5) Urine Bacteria Few /hpf (None Seen) Urine Glucose Normal mg/dL (Normal) Lactic Acid Level 1.0 mmol/L (0.4-2.0) Total Bilirubin 0.8 mg/dL (0.2-1.0) Aspartate Amino Transferase (AST) 27 U/L (13-40) Alanine Aminotransferase (ALT) 14 U/L (7-40) Alkaline Phosphatase 80 U/L (46-116) B-Type Natriuretic Peptide 906.46 pg/mL (0-100) Total Protein 5.9 g/dL (5.7-8.2) Albumin 3.9 g/dL (3.2-4.8) Other Laboratory Tests 06/17/25 05:52 Brief Hx & Hospital Course: 84-year-old female with a known history of hypertension, congestive heart failure, COPD who had unwitnessed fall, found to have acute fracture of the left only creatinine with a joint effusion. Also patient was found to have elevated troponin which was suspected demand ischemia ruled out acute TX. Patient was cleared by both Cardiology has been as orthopedics with the outpatient follow up. [facility] is being [facility] for [facility] management. Please follow up with the PCP, Cardiology, Orthopedics upon discharge in one week. Condition at Discharge: Stable Final Diagnosis/Problems List 84-year-old female with a known history of hypertension, congestive heart failure, COPD who had unwitnessed fall, found to have 1. Elevated troponin suspect demand ischemia, ruled out acute TX 2. Unwitnessed fall rule out cardiac arrhythmia 3. Acute fracture of left olecranon with a joint effusion 4. Hypertension 5. Congestive heart failure not in exacerbatio Discharge Disposition: [facility] Discharge Will this Physician continue t: No Discharge Instruct/Medications Diet: Cardiac 2g Na,low cholest Activity: No Restrictions, As Tolerated Follow Up/Referral: Follow up with the PCP in 1 week Follow up with Orthopedics in 1-2 weeks. Medications: Resume medication as reconciled Scheduled Amlodipine Besylate (Amlodipine Besylate), 1 TAB PO DAILY, (Reported) Ascorbic Acid (Ascorbic Acid), 1,000 MG PO TID, (Reported) Cinnamon Bark (Cinnamon), 1,000 MG PO BID, (Reported) Furosemide (Furosemide), 1 TAB PO BIDD, (Reported) Gabapentin (Gabapentin), 1 TAB PO TID, (Reported) Hydrocodone-Acetaminophen (Hydrocodone Bitartrate/AC 10-325 mg), 1 TAB PO PRN, (Reported) Ibandronate Sodium (Ibandronate Sodium), 150 MG PO monthly, (Reported) Lisinopril (Lisinopril), 1 TAB PO DAILY, (Reported) Meclizine HCl (Meclizine Hydrochloride), 1 TAB PO BID, (Reported) Metoprolol Tartrate (Metoprolol Tartrate), 12.5 MG PO BID, (Reported) Midodrine Hcl (Midodrine Hcl), 1 TAB PO TID, (Reported) Potassium Chloride (Klor-Con M10), 1 TAB PO BID, (Reported) Spironolactone (Spironolactone), 1 TAB PO DAILY, (Reported) Discharge Statement: "Patient was advised to return to the ER or call 911 if any headaches, dizziness, shortness of breath, chest pain, abdominal pain, bleeding, fevers, or worsening of medical condition. Patient was counseled about treatment plan, medications, possible side effects, patientverbalized understanding. All questions were answered to the best of my ability. This discharge took greater then 30 minutes in planning, reviewing documentation, counseling the patient, and discussing with other team members." ASSESSMENT ASSESSMENT Assessment 84-year-old female with a known history of hypertension, congestive heart failure, COPD who had unwitnessed fall, found to have 1. Elevated troponin suspect demand ischemia, ruled out acute TX 2. Unwitnessed fall rule out cardiac arrhythmia 3. Acute fracture of left olecranon with a joint effusion 4. Hypertension 5. Congestive heart failure not in exacerbatio Date of Service: Jun 17, 2025 Billing Provider: MARILUZ ZULETA MD Common Visit Codes: NOT BILLABLE MARILUZ ZULETA MD Jun 19, 2025 18:04
== END 2025-06-17 19:45 | DRG 562 ==
LOC: EDBD 16:52 → EDUNIT# 16:52 → ER 16:52 → OVERFLOW 06-16 02:38 → TELE-EAST 06-16 21:00
PROVIDERS: ADMIT Nurse Practitioner Family; ATTEND Nurse Practitioner Family
DX: S52.022A Displaced fracture of olecranon process without intraarticular extension of left ulna, initial encounter for closed fracture (principal); I21.A1 Myocardial infarction type 2; N39.0 Urinary tract infection, site not specified; I50.22 Chronic systolic (congestive) heart failure; I27.20 Pulmonary hypertension, unspecified; I11.0 Hypertensive heart disease with heart failure; J44.9 Chronic obstructive pulmonary disease, unspecified; Z91.81 History of falling; W18.39XA Other fall on same level, initial encounter; Y93.89 Activity, other specified; Y92.89 Other specified places as the place of occurrence of the external cause; Y99.8 Other external cause status
CPT/HCPCS: 36415; 70450; 71045; 72192; 73080; 73502; 73562; 80048; 80053; 81001; 83605; 83880; 84484; 85025; 87081; 87205; 93005; 96365; 97163; G0378